=== PATIENT | male | born 1945 | race Hispanic/Latino ===

== ENCOUNTER → 2018-11-13 | Outpatient (CLI) | payer OTHER | END | disposition home or self-care (01) | LOC: OIH 11-12 13:49 | PROVIDERS: ATTEND Internal Medicine Cardiovascular Disease | DX: I65.23 Occlusion and stenosis of bilateral carotid arteries (principal); I10 Essential (primary) hypertension; I25.10 Atherosclerotic heart disease of native coronary artery without angina pectoris | CPT/HCPCS: 93880 ==

== ENCOUNTER → 2020-01-20 | Outpatient (CLI) | payer OTHER | END | disposition home or self-care (01) | LOC: SHCH 08:04 | PROVIDERS: ATTEND Internal Medicine Cardiovascular Disease | DX: I65.23 Occlusion and stenosis of bilateral carotid arteries (principal); I25.10 Atherosclerotic heart disease of native coronary artery without angina pectoris; I51.7 Cardiomegaly ==

== ENCOUNTER → 2020-01-23 | Outpatient (CLI) | payer OTHER ==
[~2020-01-23] MED LIST: REGADENOSON 0.4 MG/5 ML PF SYG IVP SCH
== END | disposition home or self-care (01) ==
LOC: SHCH 07:56
PROVIDERS: ATTEND Internal Medicine Cardiovascular Disease
DX: I10 Essential (primary) hypertension (principal)
CPT/HCPCS: 78452; 93017; 96374; A9500 ×2; J2785

== ENCOUNTER 2022-10-07 16:30 | Emergency (ER) | payer OTHER ==
[~2022-10-07] VITALS: Ht 165.1 cm; Wt 83.9 kg
[2022-10-07 16:56] LABS: BASOPHILS % (AUTO) 0.2 % (0.0-5.0); EOSINOPHILS % (AUTO) 0.1 % (0.0-8.0); HEMATOCRIT 35.7 % (42-54); LYMPHOCYTES % (AUTO) 3.2 % (21.0-51.0); MEAN CORPUSCULAR HEMOGLOBIN 30.1 pg (27.0-33.0); MEAN CORPUSCULAR HGB CONC 35.3 g/dL (32.0-36.0); MEAN CORPUSCULAR VOLUME 85.4 fL (79-99); MONOCYTES % (AUTO) 3.2 % (3.0-13.0); NEUTROPHILS % (AUTO) 91.7 % (40.0-77.0); PLATELET COUNT (AUTO) 200 K/uL (130-400); RED BLOOD CELL COUNT(AUTO) 4.18 MIL/uL (4.50-6.20); RED CELL DISTRIBUTION WIDTH 14.2 % (11.0-15.5); WHITE BLOOD COUNT (AUTO) 9.8 K/uL (4.8-10.8)
[2022-10-07 17:06] LABS: CREATININE 2.1 mg/dL (0.5-1.5); POTASSIUM 4.8 mmol/L (3.5-5.1)
[2022-10-07 17:14] LABS: ALBUMIN 3.5 g/dL (3.5-5.0); TOTAL PROTEIN, SERUM 6.6 g/dL (6.0-8.3)
[2022-10-07 17:24] LABS: APPEARANCE,URINE CLEAR (CLEAR); BILIRUBIN,URINE NEGATIVE (NEGATIVE); COLOR,URINE LIGHT-YELLOW (YELLOW); GLUCOSE, URINE (UA) 300 mg/dL (NEGATIVE); KETONES,URINE NEGATIVE (NEGATIVE); LEUKOCYTE ESTERASE ,URINE NEGATIVE Leu/uL (NEGATIVE); NITRATE,URINE NEGATIVE (NEGATIVE); OCCULT BLOOD,URINE NEGATIVE (NEGATIVE); PH,URINE 6.5 (5.0-8.0); PROTEIN,URINE NEGATIVE (NEGATIVE); UROBILINOGEN,URINE 0.2 mg/dL (0.2-1.0)
[2022-10-07 17:31] LABS: BACTERIA,URINE RARE /HPF (None Seen); RBC,URINE 0-1 /HPF (0-1); SQUAMOUS EPITHELIAL CELL,UR RARE /HPF (0-2); WBC,URINE 0-1 /HPF (0-1)
[2022-10-07 18:07] VITALS: BP 149/74
== END 2022-10-07 18:23 | disposition home or self-care (01) ==
LOC: EDH 16:30
DX: E11.649 Type 2 diabetes mellitus with hypoglycemia without coma (principal); E78.00 Pure hypercholesterolemia, unspecified; I10 Essential (primary) hypertension; I25.10 Atherosclerotic heart disease of native coronary artery without angina pectoris; Z88.5 Allergy status to narcotic agent; Z79.899 Other long term (current) drug therapy; Z95.1 Presence of aortocoronary bypass graft
CPT/HCPCS: 36415; 71045; 80053; 81001; 82948; 84484; 85025; 93005

== ENCOUNTER 2023-03-25 09:39 | Emergency (ER) | payer OTHER ==
[~2023-03-25] VITALS: Ht 165.1 cm; Wt 83.5 kg
[~2023-03-25 09:39] MED LIST changes: +AEC81 PO; +ALLO100T PO; +ALOG6.252 PO; +AMLO-258 PO; +ATOR40TA69 PO; +CETI10TA57 PO; +CHOL100046 PO; +CLON0.1T PO; +FINA5TAB41 PO; +FLUT16H NASAL; +FOLI0.8T41 PO; +FURO40TA5 PO; +INSREG SQ; +LISI40TA9 PO; +METO100T14 PO; +RANO500T2 PO; -REGADENOSON 0.4 MG/5 ML PF SYG IVP SCH; +SODI650T PO; +TAMS-1 PO
[2023-03-25] MEDS ORDERED: TETANUS/DIPHTHERIA TOXOID [ADULT] 0.5 ML VIAL IM ONE (12:00)
[2023-03-25] MEDS ORDERED: BACITRACIN 1 EACH PACKET TP ONE (12:00)
[2023-03-25] MEDS ORDERED: AMOX1TAB16 PO (12:02)
[2023-03-25 13:10] LABS: APPEARANCE,URINE CLEAR (CLEAR); BILIRUBIN,URINE NEGATIVE (NEGATIVE); COLOR,URINE LIGHT-YELLOW (YELLOW); GLUCOSE, URINE (UA) NEGATIVE (NEGATIVE); KETONES,URINE NEGATIVE (NEGATIVE); LEUKOCYTE ESTERASE ,URINE 500 Leu/uL (NEGATIVE); NITRATE,URINE NEGATIVE (NEGATIVE); OCCULT BLOOD,URINE NEGATIVE (NEGATIVE); PH,URINE 5.5 (5.0-8.0); PROTEIN,URINE NEGATIVE (NEGATIVE); UROBILINOGEN,URINE 0.2 mg/dL (0.2-1.0)
[2023-03-25 13:27] LABS: ADD UA MICROSCOPIC YES
[2023-03-25 13:29] LABS: BACTERIA,URINE RARE /HPF (None Seen); RBC,URINE 0-1 /HPF (0-1)
[2023-03-25 13:31] VITALS: BP 126/74; PULSE 70; RESP 18; O2SAT 98
[2023-03-25] MEDS ORDERED: SULF1TAB42 PO (14:10)
== END 2023-03-25 14:23 | disposition home or self-care (01) ==
LOC: EDH 09:39
DX: T83.091A Other mechanical complication of indwelling urethral catheter, initial encounter (principal); S60.512A Abrasion of left hand, initial encounter; N39.0 Urinary tract infection, site not specified; I11.0 Hypertensive heart disease with heart failure; I50.9 Heart failure, unspecified; E11.9 Type 2 diabetes mellitus without complications; E78.00 Pure hypercholesterolemia, unspecified; Z79.4 Long term (current) use of insulin; Z79.82 Long term (current) use of aspirin; Z88.5 Allergy status to narcotic agent; Z90.49 Acquired absence of other specified parts of digestive tract; Z95.1 Presence of aortocoronary bypass graft; Y82.9 Unspecified medical devices associated with adverse incidents; Y92.89 Other specified places as the place of occurrence of the external cause; X58.XXXA Exposure to other specified factors, initial encounter; Y93.89 Activity, other specified; Y99.8 Other external cause status
CPT/HCPCS: 81001; 87077; 87088; 87186; 90471; 90714

== ENCOUNTER 2023-06-23 18:21 | Emergency (ER) | payer OTHER ==
[~2023-06-23] VITALS: Ht 170.2 cm; Wt 81.2 kg
[~2023-06-23 18:21] MED LIST changes: +AMOX1TAB16 PO; +SULF1TAB42 PO
[2023-06-23 18:24] VITALS: BP 149/74; PULSE 68; RESP 18
[2023-06-23 18:50] LABS: BASOPHILS # (AUTO) 0.06 K/uL (0.00-0.20); BASOPHILS % (AUTO) 0.6 % (0.0-5.0); EOSINOPHILS # (AUTO) 0.11 K/uL (0.00-0.70); EOSINOPHILS % (AUTO) 1.1 % (0.0-8.0); HEMATOCRIT 36.8 % (42-54); IMMATURE GRANULOCYTE ABSOLUTE 0.12 K/uL (0-1); LYMPHOCYTES # (AUTO) 1.9 K/uL (1.0-4.8); LYMPHOCYTES % (AUTO) 17.9 % (21.0-51.0); MEAN CORPUSCULAR HEMOGLOBIN 30.1 pg (27.0-33.0); MEAN CORPUSCULAR HGB CONC 33.4 g/dL (32.0-36.0); MONOCYTES % (AUTO) 9.3 % (3.0-13.0); NEUTROPHILS # (AUTO) 7.2 K/uL (1.8-7.7); NEUTROPHILS % (AUTO) 69.9 % (40.0-77.0); PLATELET COUNT (AUTO) 354 K/uL (130-400); RED BLOOD CELL COUNT(AUTO) 4.09 MIL/uL (4.50-6.20); RED CELL DISTRIBUTION WIDTH 14.6 % (11.0-15.5); WHITE BLOOD COUNT (AUTO) 10.3 K/uL (4.8-10.8)
[2023-06-23 19:06] LABS: CREATININE 1.9 mg/dL (0.5-1.5); POTASSIUM 3.9 mmol/L (3.5-5.1)
[2023-06-23 19:09] LABS: INR < 0.93 (0.85-1.15); PROTHROMBIN TIME 10.6 SEC (9.6-11.6)
[2023-06-23 19:11] LABS: ALBUMIN 3.7 g/dL (3.5-5.0); BILIRUBIN,TOTAL 0.4 mg/dL (0.2-1.0); TOTAL PROTEIN, SERUM 7.2 g/dL (6.0-8.3)
[2023-06-23] MEDS ORDERED: 0.9%NACL 1000ML 1,000 ML IV ONE (20:00)
[2023-06-23] MEDS ORDERED: DIPH1TAB PO (20:56)
== END 2023-06-23 21:37 | disposition home or self-care (01) ==
LOC: EDH 18:21
DX: I13.0 Hypertensive heart and chronic kidney disease with heart failure and stage 1 through stage 4 chronic kidney disease, or unspecified chronic kidney disease (principal); E11.22 Type 2 diabetes mellitus with diabetic chronic kidney disease; N18.30 Chronic kidney disease, stage 3 unspecified; R19.7 Diarrhea, unspecified; I50.9 Heart failure, unspecified; Z79.4 Long term (current) use of insulin; Z79.82 Long term (current) use of aspirin; Z88.5 Allergy status to narcotic agent; Z90.49 Acquired absence of other specified parts of digestive tract; Z95.1 Presence of aortocoronary bypass graft
CPT/HCPCS: 99284; 74176; 96360; 82270; 80053; 85025; 85610; 85730; 36415; J7030

== ENCOUNTER 2024-09-12 06:40 | Day surgery (SDC) | payer OTHER ==
[2024-09-10 14:14] VITALS: BP 117/57; PULSE 61; RESP 18; TEMP 97.3
[2024-09-10 14:52] LABS: BASOPHILS # (AUTO) 0.07 K/uL (0.00-0.20); BASOPHILS % (AUTO) 0.7 % (0.0-5.0); EOSINOPHILS # (AUTO) 0.33 K/uL (0.00-0.70); EOSINOPHILS % (AUTO) 3.3 % (0.0-8.0); HEMATOCRIT 35.9 % (42-54); IMMATURE GRANULOCYTE ABSOLUTE 0.07 K/uL (0-1); LYMPHOCYTES # (AUTO) 2.1 K/uL (1.0-4.8); LYMPHOCYTES % (AUTO) 21.5 % (21.0-51.0); MEAN CORPUSCULAR HEMOGLOBIN 29.6 pg (27.0-33.0); MEAN CORPUSCULAR HGB CONC 32.9 g/dL (32.0-36.0); MONOCYTES # (AUTO) 0.9 K/uL (0.1-1.0); MONOCYTES % (AUTO) 8.9 % (3.0-13.0); NEUTROPHILS # (AUTO) 6.4 K/uL (1.8-7.7); NEUTROPHILS % (AUTO) 64.9 % (40.0-77.0); PLATELET COUNT (AUTO) 312 K/uL (130-400); RED BLOOD CELL COUNT(AUTO) 3.99 MIL/uL (4.50-6.20); RED CELL DISTRIBUTION WIDTH 13.8 % (11.0-15.5); WHITE BLOOD COUNT (AUTO) 9.9 K/uL (4.8-10.8)
[2024-09-10 15:07] LABS: CREATININE 2.1 mg/dL (0.5-1.3); POTASSIUM 4.2 mmol/L (3.5-5.1)
[2024-09-10 15:08] LABS: INR <= 0.93 (0.85-1.15); PROTHROMBIN TIME 10.4 SEC (9.6-11.6)
[2024-09-10 15:09] LABS: PARTIAL THROMBOPLASTIN TIME 27.2 SEC (26.3-35.5)
[2024-09-10 15:13] LABS: B-TYPE NATRIURETIC PEPTIDE 838 pg/mL (0-100)
--- NOTE | 2024-09-10 15:24 | HMCIMG ---
Exam Type: CHEST 1VW Clinical Information: PREOP Comparison: None Findings: There is cardiomegaly and there is status post median sternotomy. The lungs are clear of infiltrates. Impression: Clear lungs.
--- NOTE | 2024-09-11 06:59 | EKG ---
[facility] Test Date: 2024-09-10 Test Time: 14:58:21 Pat Name: CURT LOPEZ Department: [facility] Room: [facility] Gender: M Superintendent Power: [id number] [phone] [id number] Requested By: Sedrick MONROE Order Number: [id number] Reading MD: Rufus Coronado Measurements Intervals [place] Rate: 57 P: 46 NM: 202 QRS: 24 QRSD: 131 T: 73 QT: 492 QTc: 480 Interpretive Statements Sinus rhythm Right bundle branch block Inferior infarct, old Compared to ECG 06/23/2023 19:53:04 Ventricular premature complex(es) no longer present Myocardial infarct finding still present Electronically Signed On 09-12-2024 17:35:51 IT RISK AND ASSURANCE MANAGER by Rufus Coronado Please click the below link to view image of tracing.
--- NOTE | 2024-09-11 15:46 | NUR ---
RE: LABS REPORTED BMP RESULTS TO MADISON BROWN NP. RECEIVED ORDERS TO HAVE PATIENT HYDRATE TONIGHT, REPEAT LABS IN AM, NS AT 150ML/HR X 4 HOURS PRIOR TO PROCEDURE THEN 2 HOURS AFTERWARD.
[~2024-09-12] VITALS: Ht 165.1 cm; Wt 63.6 kg
[~2024-09-12 06:40] MED LIST changes: -ALLO100T PO; -ALOG6.252 PO; -AMLO-258 PO; +AMLO2.5T4 PO; -AMOX1TAB16 PO; +CARB15DR2 OP; +CHOL-34 PO; -CHOL100046 PO; -FINA5TAB41 PO; -FOLI0.8T41 PO; +FOLI1TAB85 PO; -INSREG SQ; +INSU300I3 SQ; -LISI40TA9 PO; -METO100T14 PO; +METO50TA18 PO; -SULF1TAB42 PO; -TAMS-1 PO
[2024-09-12] MEDS ORDERED: 0.9%NACL 1000ML 1,000 ML IV SCH (07:00)
[2024-09-12 07:31] LABS: CREATININE 1.9 mg/dL (0.5-1.3)
--- NOTE | 2024-09-12 08:48 | PN ---
The patient is a pleasant gentleman who is well known to me with multiple medical problems as outlined by his prior evaluation and history and physical. The patient has been evaluated recently because of progressive deterioration in his left ventricular functional status and because of symptoms of dyspnea on exertion. He had been scheduled to undergo cardiac catheterization and coronary arteriography. In reviewing the patient's laboratory studies this morning, his creatinine is up to 2.1. This had been measured at 1.7 in June. Today, I have had a detailed discussion with the patient and his in regards to the findings on the laboratory studies. I have reviewed the alternative modes of management with him including the option of continued medical management versus the option of proceeding with cardiac catheterization and coronary arteriography for definitive diagnostic information. The specific risk of worsening renal dysfunction was discussed with them. At this point, they have opted for continued medical management and not to proceed with cardiac catheterization, which certainly seems reasonable. The patient's medications will be optimized. An echocardiogram will be repeated in few months to assess if there is any improvement in his left ventricular functional status. If he continues to have an EF of less than 35%, consideration will be given for a ROCHELLE for primary prevention. TID: [id number] RECEIPT: [id number]
== END 2024-09-12 07:43 | disposition home or self-care (01) ==
LOC: DAH 06:40
PROVIDERS: ATTEND Internal Medicine Cardiovascular Disease
DX: I25.10 Atherosclerotic heart disease of native coronary artery without angina pectoris (principal); I45.10 Unspecified right bundle-branch block; I25.2 Old myocardial infarction; Z88.5 Allergy status to narcotic agent; Z91.040 Latex allergy status; Z79.01 Long term (current) use of anticoagulants; Z53.8 Procedure and treatment not carried out for other reasons
CPT/HCPCS: 36415; 71045; 80048; 82948; 83880; 85025; 85610; 85730; 93005; J7030

== ENCOUNTER → 2024-10-13 | Outpatient (CLI) | payer OTHER ==
--- NOTE | 2024-10-14 07:45 | HMCSR ---
APPROVED REPORT EXAM: Two-dimensional and M-mode echocardiogram with Doppler and color Doppler. INDICATION ICD: I25 2D Dimensions RVDd3.9 cmLA (2D)4.3 (1.6-4.0cm)LVED Vol(simp.)137.2 mL IVSd1.0 (0.7-1.1cm)Ao Root(2D)3.4 (2.0-3.7cm)LVES Vol(simp.)64.5 mL LVDd5.7 (3.8-5.6cm)LVOT diam2.2 (1.8-2.4cm)LVEF(%, simp.)53 % PWd0.9 (0.7-1.1cm) LVDs3.6 (2.5-4.0cm) M-Mode Dimensions EPSS1.0 cm LA (MM)4.4 (1.6-4.0cm) Ao Root(MM)3.7 (2.0-3.7cm) Aortic Valve AoV Vmax2.4 m/Terra Peak GR23.3 mmHgLVOT Vmax1.4 m/s AoV VTI0.6 mAo Mean GR12.9 mmHgLVOT VTI0.33 m REBEKAH (VMAX)2.1 cm2Al P1/2T554 msAVA (VTI) 2.1 cm2 Mitral Valve MV E Vmax82.3 cm/sDECEL Bfio564 ms MV A Mfrx155.5 cm/sP 1/2 T66 ms E/A ratio0.7MVA (PHT)3.4 cm2 TDI E/E' Wiatyw56.6E/E' Lateral9.1 Medial E' Peak V4.00 cm/sLateral E' Peak V9.00 cm/s Left Ventricle The left ventricle is borderline dilated. There is normal left ventricular wall thickness. LVEF is 50 -55%. No left ventricle thrombus noted on this study. Stage I diastolic dysfunction. Right Ventricle The right ventricle is normal size. The right ventricular systolic function is normal. Atria The left atrium size is normal. The right atrium size is normal. Aortic Valve Aortic valve is trileaflet and heavily thickened, with decreased opening. Trace of aortic regurgitati on is present. There is mild aortic valvular stenosis may be underestimated due to low flow gradient. pk gradient 23mmHg. mean gradient 13mmHg. The degree of reduced leaflet excursions is consistent wit h a more significant degree of aortic stenosis than the gradient measurements suggest. Mitral Valve The mitral valve is mildly thickened. There is mild mitral valve regurgitation noted. There is no ivory ral valve stenosis. Tricuspid Valve The tricuspid valve is normal in structure. There is no tricuspid valve regurgitation noted. Pulmonic Valve The pulmonary valve is normal in structure. There is no pulmonic valvular regurgitation. Great Vessels The aortic root is normal in size. The IVC is normal in size and collapses >50% with inspiration. Pericardium There is no pericardial effusion. Other Information Quality : Adequate Conclusion The left ventricle is borderline dilated. LVEF is 50-55%. Stage I diastolic dysfunction. The right ventricle is normal size. The left atrium size is normal. Aortic valve is trileaflet and heavily thickened, with decreased opening. Trace of aortic regurgitation is present. There is mild aortic valvular stenosis may be underestimated due to low flow gradient. pk gradient 23 mmHg. mean gradient 13mmHg. The degree of reduced leaflet excursions is consistent with a more significant degree of aortic steno sis than the gradient measurements suggest. The mitral valve is mildly thickened. There is mild mitral valve regurgitation noted. There is no mitral valve stenosis. The aortic root is normal in size. The IVC is normal in size and collapses >50% with inspiration. There is no pericardial effusion.
== END | disposition home or self-care (01) ==
LOC: RAH 14:40
PROVIDERS: ATTEND Internal Medicine Cardiovascular Disease
DX: I08.0 Rheumatic disorders of both mitral and aortic valves (principal); I25.10 Atherosclerotic heart disease of native coronary artery without angina pectoris
CPT/HCPCS: 93306

== ENCOUNTER 2024-10-20 10:07 | Emergency (ER) | payer MEDICARE, OTHER ==
[~2024-10-20] VITALS: Ht 165.1 cm; Wt 63.0 kg
--- NOTE | 2024-10-20 10:25 | ERN ---
ED Note History of Present Illness Stated Complaint: TIGHTNESS IN CHEST,JITTERING Chief Complaint: Hypertension Time Seen by MD: 10:19 Dictation: Patient is a 79-year-old male here with his with complaints of having elevated blood pressure, despite having taken clonidine 0.1 At 09:03 this morning. also states he has been jittery. No fever no chills no nausea vomiting no complaints of chest pain. Patient does have a history of CAD, six stents and a chronic Temple catheter in place. He had an appointment today with his rn field case manager's today, , and Mr. To come to the emergency room. Allergies: Coded Allergies: codeine (Unverified Allergy, Unknown, 01/22/20) latex (Unverified Allergy, Unknown, 01/22/20) Home Meds Reported Medications Insulin Glargine,Hum.rec.anlog (Toujeo Max Solostar) 300 Unit/Ml (3 Ml) Insuln.pen, 22 UNIT SQ DAILY, SYRINGE /12/28 Carboxymethylcellulos/Glycerin (Refresh Optive Eye Drops) 0.5 %-0.9 % Drops, 15 ML OP AD for 4 TIMES PER DAY , DROP /12/28 Fluticasone Propionate (Flonase Nasal [place]) 50 Mcg/Actuation [place], 50 MCG NASAL AD, SPRAY /12/28 Cholecalciferol (Vitamin D3) (Vitamin D3) 25 Mcg (1000 Unit) Tablet, 25 MCG PO PM, TAB 2 Vit B Cmplx 3/FA/Vit C/Biotin (Gavi-Holly Rx Tablet) 1 Mg-60 Mg-300 Mcg Tablet, 1 EACH PO AM, TAB /12/28 Metoprolol Tartrate (Metoprolol Tartrate) 50 Mg Tablet, 50 MG PO BID, TAB 25 Amlodipine Besylate (Amlodipine Besylate) 2.5 Mg Tablet, 2.5 MG PO BID, TAB 25 Sodium Bicarbonate (Sodium Bicarbonate) 650 Mg Tablet, 650 MG PO BIDAC, TAB 11/27/22 Clonidine HCl (Clonidine HCl) 0.1 Mg Tablet, 0.1 MG PO Q6HPRN PRN for IF SBP GREATER THAN 160, TAB 11/27/22 Aspirin (ASPIRIN 81 MG ECTAB) 81 Mg Ectab, 81 MG PO DAILY, TAB.EC 11/27/22 Furosemide (Furosemide) 40 Mg Tablet, 40 MG PO AM, TAB 11/27/22 Ranolazine (RANEXA) 500 Mg Tab.er.12h, 500 MG PO BIDAC, TAB 11/27/22 Atorvastatin Calcium (LIPITOR) 80 Mg Tablet, 80 MG PO HS, TAB 11/27/22 Cetirizine HCl (Cetirizine HCl) 10 Mg Tablet, 10 MG PO DAILY, TAB 11/27/22 Past Medical History Past Medical History: CHF, Diabetes-Type II, High Cholesterol, Hypertension, Renal Disese, Stroke, Other Additional Past Medical Hx: PROSTATE, TEMPLE CATHETER IN PLACED Surgical History: Appendectomy, CABG Surgical History Other: BLADDER, EYE SURGERY Family History: HTN Social History: Negative, Lives with family RN Note Reviewed/Agreed w/PFSH: Yes Review of System Dictation CONSTITUTIONAL: Negative except for HPI HEAD/FACE: Negative except for HPI EENT: Negative except for HPI RESPIRATORY: Negative except for HPI GASTROINTESTINAL/ABDOMINAL: Negative except for HPI GENITOURINARY: Negative except for HPI MUSCULOSKELETAL: Negative except for HPI INTEGUMENTARY: Negative except for HPI NEUROLOGICAL/PSYCH: Negative except for HPI HEMATOLOGIC/LYMPHATIC: Negative except for HPI All Systems Negative, Except as noted above. 13 point review of systems assessed and all negative except for above. Initial Vital Sign VS Vital Signs Date Time Temp Pulse Resp B/P (MAP) Pulse Ox O2 Delivery O2 Flow Rate FiO2 10/20/24 10:14 97.9 64 16 173/93 100 Room Air 0 10/20/24 11:18 21 Physical Exam Dictation Vital Signs reviewed General Appearance: Alert, oriented x 3, no acute distress, well developed, nourished. Head and Face: non-traumatic. Eyes: PERRL, pink conjunctivas, eyelid no trauma, anterior chamber with arcus s enilis. Ears: Pinnas intact and no signs of trauma or erythema ear canals clear and no discharge TM no erythema Nose: No discharge, no bleeding. Oropharynx: Mouth normal, tongue pink, pharynx clear,no erythema, tonsils no exudates, no abscesses noted, mucous membrane moist Neck: Supple, non-tender, no thyromegaly, no masses, no JVD, no bruits Breast:Deferred Chest:No tenderness, no crepitus, no paradoxical movement, no retractions Lungs:Clear, well-ventilated, symmetric, no rales, no wheezing, no rhonchi, no stridor, good breath sounds bilaterally Heart: Regular rate, regular rhythm, no murmur, no gallops Vascular: no peripheral edema, Abdomen: Soft, positive bowel sounds, nondistended, no guarding, nontender, no rebound, no masses no hepatomegaly, no splenomegaly, no Jameson's sign, no hernias. Rectal: Deferred Genital: Deferred Temple catheter in place to leg bag Neurological: Normal speech, motor function intact, sensory function intact Musculoskeletal: Neck nontender, full range of motion, back nontender, full range of motion, Extremities: nontender, full range of motion Skin: Color pink, dry, no turgor, no rash, no lacerations, no abrasions, no contusions. Lymphatic: Deferred Results (Laboratory/Radiology) Laboratory/Radiology Laboratory Tests Test 10/20/24 10:34 10/20/24 12:23 White Blood Count 8.6 K/uL (4.8-10.8) Red Blood Count 4.49 MIL/uL (4.50-6.20) L Hemoglobin 13.4 g/dL (14.0-18.0) L Hematocrit 39.8 % (42-54) L Mean Corpuscular Volume 88.6 fL (79-99) Mean Corpuscular Hemoglobin 29.8 pg (27.0-33.0) Mean Corpuscular Hemoglobin Concent 33.7 g/dL (32.0-36.0) Red Cell Distribution Width 13.8 % (11.0-15.5) Platelet Count 313 K/uL (130-400) Mean Platelet Volume 9.6 fL (7.5-10.5) Immature Granulocyte % (Auto) 0.7 % (0-1) Neutrophils (%) (Auto) 63.1 % (40.0-77.0) Lymphocytes (%) (Auto) 23.0 % (21.0-51.0) Monocytes (%) (Auto) 8.3 % (3.0-13.0) Eosinophils (%) (Auto) 4.3 % (0.0-8.0) Basophils (%) (Auto) 0.6 % (0.0-5.0) Neutrophils # (Auto) 5.5 K/uL (1.8-7.7) Lymphocytes # (Auto) 2.0 K/uL (1.0-4.8) Monocytes # (Auto) 0.7 K/uL (0.1-1.0) Eosinophils # (Auto) 0.37 K/uL (0.00-0.70) Basophils # (Auto) 0.05 K/uL (0.00-0.20) Absolute Immature Granulocyte (auto 0.06 K/uL (0-1) Nucleated Red Blood Cells 0.0 % (0.0-0.19) Sodium Level 133 mmol/L (136-145) L Potassium Level 3.8 mmol/L (3.5-5.1) Chloride Level 97 mmol/L (101-111) L Carbon Dioxide Level 30 mmol/L (21-32) Blood Urea Nitrogen 34 mg/dL (7-18) H Creatinine 1.9 mg/dL (0.5-1.3) H Glomerular Filtration Rate Calc 35 mL/min (>90) Random Glucose 191 mg/dL (70-105) H Total Calcium 9.2 mg/dL (8.5-10.1) Magnesium Level 1.80 mg/dL (1.80-2.40) Troponin I High Sensitivity 25 ng/L (4-75) B-Type Natriuretic Peptide 752 pg/mL (0-100) H Urine Color LIGHT-YELLOW (YELLOW) Urine Appearance CLEAR (CLEAR) Urine pH 6.5 (5.0-8.0) Urine Specific [place] 1.005 (1.001-1.031) Urine Protein NEGATIVE mg/dL (NEGATIVE) Urine Glucose (UA) 70 mg/dL (NEGATIVE) H Urine Ketones NEGATIVE mg/dL (NEGATIVE) Urine Occult Blood NEGATIVE (NEGATIVE) Urine Nitrate NEGATIVE (NEGATIVE) Urine Bilirubin NEGATIVE mg/dL (NEGATIVE) Urine Urobilinogen 0.2 mg/dL (0.2-1.0) Urine Leukocyte Esterase 500 Noah/uL (NEGATIVE) H Urine RBC 0-1 /HPF (0-1) Urine WBC 26-50 /HPF (0-1) H Urine Bacteria RARE /HPF (None Seen) Exam Type: CHEST 1VW Clinical Information: Chest pain Comparison: None Findings: There is cardiomegaly and there is status post median sternotomy. The lungs are clear of infiltrates. Impression: Clear lungs. Labs Reviewed?: Yes EKG Comment: Sinus bradycardia/heart rate 58/right bundle branch block/axis normal ED Course ED Course Orders Procedure Category Date Status Time Cbc With Differential LAB 10/20/24 Complete 10:20 B-Type Natriuretic LAB 10/20/24 Complete Peptide 10:20 Chest 1vw RAD 10/20/24 Resulted 10:20 12 Lead Ekg Tracing- EKG 10/20/24 Complete Technical 10:20 Magnesium LAB 10/20/24 Complete 10:20 Troponin I High LAB 10/20/24 Complete Sensitivity 10:20 Urinalysis Profile LAB 10/20/24 Complete 10:20 Basic Metabolic Panel LAB 10/20/24 Complete 10:20 Furosemide 40mg Vial PHA 10/20/24 Complete (Lasix 40mg Vial) 13:00 Culture Urine NUBIA 10/20/24 In Process 12:55 Levofloxacin 500mg PHA 10/20/24 In Process Tab (Levaquin 500mg T 13:30 Current Medications Medications (Trade) Dose Ordered Sig/Ganesh Route PRN Reason Start Time Stop Time Status Last Admin Dose Admin Furosemide (LASix 40MG VIAL) 40 mg ONCE ONCE IV 10/20/24 13:00 10/20/24 13:01 DC 10/20/24 13:05 Levofloxacin (LEvaquIN 500MG TAB) 500 mg ONCE PO 10/20/24 13:30 10/30/24 13:29 Vital Signs Date Time Temp Pulse Resp B/P (MAP) Pulse Ox O2 Delivery O2 Flow Rate FiO2 10/20/24 12:28 97.9 65 16 156/65 100 Room Air* 0 21 10/20/24 11:18 97.9 60 16 135/62 100 Room Air* 0 21 10/20/24 10:14 97.9 64 16 173/93 100 Room Air 0 1335/PATIENT WE WILL BE DISCHARGED HOME WITH HIS LAST BLOOD PRESSURE 156/65 WE WILL INCREASE METOPROLOL TO 100 MG A.M. AND LEAVE AT 50 MG P.M.. IN ADDITION WE WILL BE GIVEN LEVAQUIN FOR URINARY TRACT INFECTION AND TOLD TO FOLLOW UP WITH HIS DOCTOR. AND PATIENT ARE IN AGREEMENT THAT HE WOULD LIKE TO BE DISCHARGED HOME AND WE WILL FOLLOW UP OUTPATIENT Medical Decision Making MDM MDM: DIFFERENTIAL DIAGNOSIS: ACS/AMI/UNCONTROLLED BLOOD PRESSURE/ELECTROLYTE IMBALANCE/DEHYDRATION/BNP/CHF RATIONALE: TESTS CONSIDERED AND ORDERED SECONDARY TO SHARED DECISION MAKING INCLUDE: LABS/RADIOLOGY/EKG PREVIOUS OUTSIDE RECORDS REVIEWED: OLD ER VISITS. RISK OF COMPLICATION AND/OR MORBIDITY OR MORTALITY OF PATIENT MANAGEMENT: NONE MEDICATIONS-PER MEDICATION RECONCILIATION NEED FOR HOSPITALIZATION: PATIENT DOES NOT MEET CRITERIA FOR HOSPITALIZATION. NO NEED FOR EMERGENCY MAJOR/MINOR SURGERY: NO THERE ARE NO SOCIAL CONCERNS WITH THIS PATIENT. PRESCRIPTION DRUG MANAGEMENT LEVAQUIN, PATIENT IS ALREADY ON LASIX 40 DAILY HAD NOT TAKEN IT THIS MORNING. PRESCRIPTIONS WILL INCLUDE SYMPTOMATIC CARE PATIENT'S PRIOR EXTERNAL MEDICAL RECORDS FROM OTHER ER VISITS WERE REVIEWED BY ME INDICATED. PRIOR TESTING AND RESULTS FROM PREVIOUS VISITS WERE REVIEWED. PRIOR TESTS WERE TAKEN INTO ACCOUNT WITH MEDICAL DECISION MAKING AND RESOURCE UT ILIZATION, INDEPENDENT HISTORIAN/HISTORIANS WERE USED TO OBTAIN COMPLETE MEDICAL HISTORY. I INDEPENDENTLY INTERPRETED THE TEST THAT WERE PERFORMED, RESULTS WERE REVIEWED BY ME AND CONSIDERED FINDINGS ON RADIOLOGY IF ORDERED. MEDICAL MANAGEMENT AND EXAMINATION INTERPRETATION DISCUSSIONS WERE HAD BY ME WITH OTHER QUALIFIED HEALTHCARE PROFESSIONALS INDICATED FOR THE PATIENT'S CAR E. DX & DISP Disposition: Discharge Departure Impression: Primary Impression: Elevated blood pressure reading Additional Impressions: Elevated brain natriuretic peptide (BNP) level, Acute cystitis, Temple catheter in place Condition: Stable Scripts Levofloxacin (Levofloxacin) 500 Mg Tablet 1 TAB PO DAILY for 7 Days, #7 TAB 0 Refills Prov: JUAN CHAVEZ AERIAL TRAM OPERATOR 10/20/24 Additional Instructions: FOLLOW-UP WITH PRIMARY CARE PROVIDER IN 1 TO 2 DAYS. TAKE MEDICATIONS DIRECTED HERE IN THE EMERGENCY ROOM. OKAY TO CONTINUE HOME MEDICATIONS UNLESS OTHERWISE DISCUSSED DURING YOUR VISIT IN THE EMERGENCY ROOM TODAY. RETURN TO YOUR NEAREST EMERGENCY ROOM IF SYMPTOMS WORSEN OR IF THERE IS NO IMPROVEMENT. CALL 911 IF YOU NEED IMMEDIATE ASSISTANCE. TAKE TYLENOL OR MOTRIN [id number] NEEDED AND IF NO CONTRAINDICATIONS ARE PRESENT. INCREASE ORAL HYDRATION. A WOUND CULTURE OR URINE CULTURE WAS ORDERED HERE IN THE EMERGENCY ROOM DEPARTMENT PLEASE FOLLOW-UP WITH PRIMARY CARE PROVIDER AND ADVISE THEM TO GET REPEAT PORTS FROM OUR FACILITY. IF YOU HAD ANY RAYSA WRAP/SPLINTS THAT WERE APPLIED HERE, PLEASE DO NOT REMOVE THEM UNTIL YOU SEE YOUR PRIMARY CARE OR SPECIALTY. INCREASE METOPROLOL TO 100 MG IN THE MORNING, 50 MG IN THE AFTERNOON. TAKE LEVAQUIN DIRECTED UNTIL GONE. CONTINUE LASIX DIRECTED FROM YOUR DOCTOR AND FOLLOW UP WITH YOUR PRIMARY CARE Referrals: CELINA AGUILA (PCP) Time of Disposition: 13:41 I have reviewed the case, and I agree with, Diagnosis and Plan JUAN CHAVEZ NP Oct 20, 2024 10:24
--- NOTE | 2024-10-20 10:36 | EKG ---
[facility] Test Date: 2024-10-20 Test Time: 10:20:47 Pat Name: CURT LOPEZ Department: ED Room: Gender: M Health Care Marketing Specialist: [id number] : 1945 Requested By: JUAN CHAVEZ Order Number: [id number] Reading MD: Bay Abebe Measurements Intervals [place] Rate: 58 P: 52 CO: 194 QRS: 7 QRSD: 142 T: 51 QT: 482 QTc: 475 Interpretive Statements Sinus rhythm Left atrial enlargement Right bundle branch block Inferior infarct, old Compared to ECG 09/10/2024 14:58:21 Atrial abnormality now present Myocardial infarct finding still present Electronically Signed On 10-22-2024 14:11:38 CDT by Bay Abebe Please click the below link to view image of tracing.
[2024-10-20 10:41] LABS: BASOPHILS # (AUTO) 0.05 K/uL (0.00-0.20); BASOPHILS % (AUTO) 0.6 % (0.0-5.0); EOSINOPHILS # (AUTO) 0.37 K/uL (0.00-0.70); EOSINOPHILS % (AUTO) 4.3 % (0.0-8.0); HEMATOCRIT 39.8 % (42-54); IMMATURE GRANULOCYTE ABSOLUTE 0.06 K/uL (0-1); MEAN CORPUSCULAR HEMOGLOBIN 29.8 pg (27.0-33.0); MEAN CORPUSCULAR HGB CONC 33.7 g/dL (32.0-36.0); MEAN CORPUSCULAR VOLUME 88.6 fL (79-99); MONOCYTES # (AUTO) 0.7 K/uL (0.1-1.0); MONOCYTES % (AUTO) 8.3 % (3.0-13.0); NEUTROPHILS # (AUTO) 5.5 K/uL (1.8-7.7); NEUTROPHILS % (AUTO) 63.1 % (40.0-77.0); PLATELET COUNT (AUTO) 313 K/uL (130-400); RED BLOOD CELL COUNT(AUTO) 4.49 MIL/uL (4.50-6.20); RED CELL DISTRIBUTION WIDTH 13.8 % (11.0-15.5); WHITE BLOOD COUNT (AUTO) 8.6 K/uL (4.8-10.8)
[2024-10-20 10:48] LABS: CREATININE 1.9 mg/dL (0.5-1.3); MAGNESIUM 1.8 mg/dL (1.80-2.40); POTASSIUM 3.8 mmol/L (3.5-5.1)
[2024-10-20 11:12] LABS: B-TYPE NATRIURETIC PEPTIDE 752 pg/mL (0-100)
--- NOTE | 2024-10-20 12:14 | HMCIMG ---
Exam Type: CHEST 1VW Clinical Information: Chest pain Comparison: None Findings: There is cardiomegaly and there is status post median sternotomy. The lungs are clear of infiltrates. Impression: Clear lungs.
[2024-10-20 12:50] LABS: APPEARANCE,URINE CLEAR (CLEAR); BILIRUBIN,URINE NEGATIVE (NEGATIVE); COLOR,URINE LIGHT-YELLOW (YELLOW); GLUCOSE, URINE (UA) 70 mg/dL (NEGATIVE); KETONES,URINE NEGATIVE (NEGATIVE); LEUKOCYTE ESTERASE ,URINE 500 Leu/uL (NEGATIVE); NITRATE,URINE NEGATIVE (NEGATIVE); OCCULT BLOOD,URINE NEGATIVE (NEGATIVE); PH,URINE 6.5 (5.0-8.0); PROTEIN,URINE NEGATIVE (NEGATIVE); UROBILINOGEN,URINE 0.2 mg/dL (0.2-1.0)
[2024-10-20 12:55] LABS: ADD UA MICROSCOPIC YES
[2024-10-20] MEDS: furoSEMIDE 40MG VIAL IV ONE (13:05)
[2024-10-20 13:06] LABS: BACTERIA,URINE RARE /HPF (None Seen); RBC,URINE 0-1 /HPF (0-1); WBC,URINE 26-50 /HPF (0-1)
[2024-10-20] MEDS ORDERED: LEVO-70 PO (13:43)
[2024-10-20] MEDS: levoFLOXacin 500 MG TABLET PO SCH (13:49)
[2024-10-20 13:50] VITALS: BP 132/66; PULSE 66; RESP 16; TEMP 97.8; O2SAT 100
== END 2024-10-20 14:10 | disposition home or self-care (01) ==
LOC: EDH 10:07
DX: I11.0 Hypertensive heart disease with heart failure (principal); I50.9 Heart failure, unspecified; N30.00 Acute cystitis without hematuria; R79.89 Other specified abnormal findings of blood chemistry; E11.9 Type 2 diabetes mellitus without complications; E78.00 Pure hypercholesterolemia, unspecified; I25.10 Atherosclerotic heart disease of native coronary artery without angina pectoris; Z95.1 Presence of aortocoronary bypass graft; Z90.49 Acquired absence of other specified parts of digestive tract; Z88.5 Allergy status to narcotic agent; Z91.040 Latex allergy status; Z79.4 Long term (current) use of insulin; Z79.899 Other long term (current) drug therapy; Z79.82 Long term (current) use of aspirin; Z86.73 Personal history of transient ischemic attack (TIA), and cerebral infarction without residual deficits
CPT/HCPCS: 99285; 96374; 71045; 83735; 84484; 80048; 83880; 85025; 87086 ×3; 87186 ×2; 81001; 36415; 93005; J1940

== ENCOUNTER 2025-05-28 19:26 | Emergency (ER) | payer OTHER ==
[~2025-05-28] VITALS: Ht 165.1 cm; Wt 61.2 kg
[~2025-05-28 19:26] MED LIST changes: +ALLO100T PO; -AMLO2.5T4 PO; -CARB15DR2 OP; -CHOL-34 PO; +FURO20TA6 PO; -FURO40TA5 PO; +HYDR25TA67 PO; +METO25TA3 PO; -METO50TA18 PO; +PANT40TA PO; +TICA90TA PO
--- NOTE | 2025-05-28 19:51 | NUR ---
PT CARE ASSUMED AT THIS TIME
--- NOTE | 2025-05-28 19:55 | ERN ---
ED Note History of Present Illness Stated Complaint: C/O PAIN TO HEAD AND LOWER BACK PAIN AFTER FALL Chief Complaint: Mechanical Fall Time Seen by MD: 19:33 Dictation: 79-year-old male who was brought to the ER after a fall at home. As per patient has an was trying to sitting for stand, he felt he is a and fell backwards, hit his head. Patient is complaining of headache, lower lumbar/right side pelvis pain. Patient is a his said that patient is under hospitalist, she does not want any to be admitted last is very necessary. Allergies: Coded Allergies: codeine (Unverified Allergy, Unknown, RASH, 05/16/25) latex (Unverified Allergy, Unknown, 01/22/20) Home Meds Active Scripts Ticagrelor (Brilinta) 90 Mg Tablet, 90 MG PO BID, #60 TAB Prov:VAISHALIBAMCHRIS B CIGAR HEAD PUNCHER 05/19/25 Pantoprazole Sodium (Protonix) 40 Mg Tablet.dr, 40 MG PO DAILY, #60 TAB Prov:VAISHALICHRIS KUHN CIGAR HEAD PUNCHER 05/19/25 Metoprolol Succinate (Toprol Xl) 25 Mg Tab.er.24h, 25 MG PO BID, #60 TAB Prov:VAISHALICHRIS KUHN CIGAR HEAD PUNCHER 05/19/25 Furosemide (Lasix 20Mg Tab) 20 Mg Tablet, 20 MG PO DAILY, #60 TAB Prov:VAISHALIBAMCHRIS B CIGAR HEAD PUNCHER 05/19/25 Atorvastatin Calcium (LIPITOR) 40 Mg Tablet, 40 MG PO HS, #60 TAB Prov:VAISHALICHRIS KUHN CIGAR HEAD PUNCHER 05/19/25 Aspirin (ASPIRIN 81 MG ECTAB) 81 Mg Ectab, 81 MG PO DAILY, #60 TAB.EC Prov:VAISHALICHRIS KUHN CIGAR HEAD PUNCHER 05/19/25 Reported Medications Hydralazine HCl (Hydralazine HCl) 25 Mg Tablet, 25 MG PO BID, TAB 05/16/25 Allopurinol (Allopurinol) 100 Mg Tablet, 150 MG PO DAILY, TAB 05/16/25 Insulin Glargine,Hum.rec.anlog (Toujeo Max Solostar) 300 Unit/Ml (3 Ml) Insuln.pen, 22 UNIT SQ DAILY, SYRINGE 09/10/24 Fluticasone Propionate (Flonase Nasal [place]) 50 Mcg/Actuation [place], 50 MCG NASAL AD, SPRAY 09/10/24 Vit B Cmplx 3/FA/Vit C/Biotin (Gavi-Holly Rx Tablet) 1 Mg-60 Mg-300 Mcg Tablet, 1 EACH PO AM, TAB 09/10/24 Sodium Bicarbonate (Sodium Bicarbonate) 650 Mg Tablet, 650 MG PO BIDAC, TAB 11/27/22 Clonidine HCl (Clonidine HCl) 0.1 Mg Tablet, 0.1 MG PO Q6HPRN PRN for IF SBP GREATER THAN 160, TAB 11/27/22 Aspirin (ASPIRIN 81 MG ECTAB) 81 Mg Ectab, 81 MG PO DAILY, TAB.EC 11/27/22 Ranolazine (RANEXA) 500 Mg Tab.er.12h, 500 MG PO BIDAC, TAB 11/27/22 Atorvastatin Calcium (LIPITOR) 80 Mg Tablet, 80 MG PO HS, TAB 11/27/22 Cetirizine HCl (Cetirizine HCl) 10 Mg Tablet, 10 MG PO DAILY, TAB 11/27/22 Past Medical History Past Medical History: Diabetes-Type II, Hypertension, Renal Disese Additional Past Medical Hx: PROSTATE, TEMPLE CATHETER IN PLACED Surgical History: Other Surgical History Other: BLADDER, EYE SURGERY Family History: HTN Social History: Negative, Lives with family Review of System Dictation NEGATIVE EXCEPT PER HPI Constitutional: Negative for fever,chills, and weight loss Eyes: Negative for injury, pain,redness, and discharge ENT: Negative for injury,pain or swelling Cardiovascular: denies chest pain, palpitations, and edema Respiratory: Negative for shortness of breath, cough, and wheezing, Abdomen/GI: Negative for abdominal pain, nausea, vomiting, diarrhea, and constipation Back: Negative for injury and pain : Negative for injury, bleeding and discharge MS/Extremity: Lower lumbar spine Skin: Negative for rash, and discoloration Neuro: Reports headache Psych: Negative for suicide ideation, homicidal ideation, and hallucinations Initial Vital Sign VS Vital Signs Date Time Temp Pulse Resp B/P (MAP) Pulse Ox O2 Delivery O2 Flow Rate FiO2 05/28/25 19:29 98.4 81 20 177/95 99 Room Air 05/28/25 19:51 0 21 Physical Exam Dictation General: awake, alert, NAD Head/Face: There is a bump/hematoma in the occipital area. Eyes: PERRL, EOMI, vision at baseline ENT: oral cavity clear, TMs clear, no signs of infection Neck: Trachea midline, supple, no nuchal rigidity Cardiovascular: RRR, normal S1/S2, No MRGs, no JVD Respiratory: CTAB, no respiratory distress, No rales or wheezes Abdomen: Soft , no tender Skin: Warm, dry, normal turgor, no rash MS/Extremity: Pulses equal, no cyanosis, neurovascular intact, FROM Neuro: COAx4, GCS 15, strength 5/5, CN 2-12 intact, normal cerebellar exam, normal gait, Psych: Normal behavior, mood, and affect normal ED Course ED Course Orders Procedure Category Date Status Time Ct Head/Brain W/O CT 05/28/25 Resulted Contrast 19:39 Ct Cervical Spine W/O CT 05/28/25 Resulted Contrast 19:39 Pelvis Complete Min RAD 05/28/25 Resulted 3vws 19:39 Lumbar Spine 2-3vws RAD 05/28/25 Resulted 19:39 Acetaminophen 500mg PHA 05/28/25 Complete Tab (Tylenol 500mg T 20:00 Ibuprofen 600 Mg PHA 05/28/25 Complete Tablet (Motrin) 21:00 Aspirin 81mg Chew Tab PHA 05/29/25 Logged (Aspirin 81mg Chew 09:00 Current Medications Medications (Trade) Dose Ordered Sig/Ganesh Route PRN Reason Start Time Stop Time Status Last Admin Dose Admin Acetaminophen (TYLenol 500MG TAB) 500 mg ONCE ONCE PO 05/28/25 20:00 05/28/25 20:01 DC 05/28/25 20:53 Aspirin (Aspirin 81mg Chew Tab) 81 mg DAILY PO 05/29/25 09:00 06/28/25 08:59 UNV Ibuprofen (moTRIN) 600 mg ONCE ONCE PO 05/28/25 21:00 05/28/25 21:01 DC Vital Signs Date Time Temp Pulse Resp B/P (MAP) Pulse Ox O2 Delivery O2 Flow Rate FiO2 05/28/25 21:33 78 19 152/91 98 Room Air* 0 05/28/25 19:51 98.4 75 20 172/77 99 Room Air* 0 05/28/25 19:29 98.4 81 20 177/95 99 Room Air Medical Decision Making MDM Fall Hematoma of head Possible internal Head injury Possible lumbar spine fracture Ordered CT head spine Ordered x-ray of lumbar/pelvic area REASON: s/p fall ORDERING PHYSICIAN: CHUCKY ANDREWS MD PROCEDURE: HEAD WO - CT HEAD/BRAIN W/O CONTRAST ADDENDUM REPORT ADDENDUM: Results were shared by telephone at 22:42 pm on 05-28-25 and acknowledged by Chucky Espinoza. /[place] EXAM: CT Head Without IV contrast. CLINICAL HISTORY: s/p fall TECHNIQUE: Axial computed tomography images of the head/brain without intravenous contrast. COMPARISON: None provided. FINDINGS: BRAIN: Age-appropriate cerebral atrophy. Confluent periventricular chronic small vessel ischemic changes. There is an ill-defined hypodensity in the left temporal lobe with partial blurring of the guevara white matter differentiation. No evidence of acute hemorrhage. No mass lesion. No midline shift or extra-axial collections. VENTRICLES: No hydrocephalus. ORBITS: The orbits are unremarkable. SINUSES AND MASTOIDS: Right mastoiditis. The paranasal sinuses and the rest of the mastoid air cells are clear. BONES: No fracture. SOFT TISSUES: Extracalvarial soft tissue swelling with subgaleal hematoma in the right high parietal region, the maximum thickness measuring up to 1.2 cm. IMPRESSION: Ill-defined hypodensities in the left temporal lobe with partial loss of the guevara white matter differentiation, concerning for an acute infarct. Recommend MRI of the Brain with DWI. Age-appropriate cerebral atrophy and chronic small vessel ischemic changes. Extracalvarial soft tissue swelling with subgaleal hematoma in the right high parietal region, the maximum thickness measuring up to 1.2 cm. IMPRESSION: No acute cervical spine abnormality. Mild to moderate cervical spondylosis with disc osteophyte complex bulges as described. Recommend MRI of the cervical spine. Extensive atherosclerotic vascular disease of the right carotid bulb with more than 70-80% narrowing and more than 60-70% narrowing of the origin of the right internal carotid artery, and atherosclerotic calcification of the left carotid bulbs with approximately 30-40% narrowing. Patient results of CT scan discussed with the family member, taylor possible time stroke, recommendation for MRI , but patient and family member decided did not want to proceed with a admission for further studies, since patient is under hospitalist team preferred to follow up as outpatient with the his nurse practitioner from hospice. I will discharge the patient on aspirin 81 mg/atorvastatin. DX & DISP Disposition: Discharge Departure Impression: Primary Impression: Fall Additional Impressions: Stroke, Hospice care patient Condition: Stable Scripts Acetaminophen (Tylenol) 500 Mg Tab 1 TAB PO Q6HPRN PRN for pain or fever for 5 Days, #25 TAB 0 Refills Prov: CHUCKY ANDREWS MD 05/28/25 Aspirin (ASPIRIN 81MG CHEW TAB) 81 Mg Tab.chew 1 TAB PO DAILY for 30 Days, #30 TAB 0 Refills Prov: CHUCKY ANDREWS MD 05/28/25 Additional Instructions: RETURN TO ER FOR ANY ACUTE OR WORSENING SYMPTOMS. FOLLOW-UP IN 1-2 DAYS WITH PRIMARY PROVIDER FOR RECHECK OF TODAY'S SYMPTOMS. Referrals: CELINA AGUILA (PCP) Patient he will be discharged home, he does not want to proceed with the a dmission or MRI at moment. Stated that his under hospitalist. The prefers to follow up with the nurse practitioner from hospice as outpatient. We discussed the pros and cons to be discharged as well the risks and they decided to proceed with a discharged home. CHUCKY ANDREWS MD May 28, 2025 19:55
--- NOTE | 2025-05-28 21:32 | HMCIMG ---
EXAM: CT Head Without IV contrast. CLINICAL HISTORY: s/p fall TECHNIQUE: Axial computed tomography images of the head/brain without intravenous contrast. COMPARISON: None provided. FINDINGS: BRAIN: Age-appropriate cerebral atrophy. Confluent periventricular chronic small vessel ischemic changes. There is an ill-defined hypodensity in the left temporal lobe with partial blurring of the guevara white matter differentiation. No evidence of acute hemorrhage. No mass lesion. No midline shift or extra-axial collections. VENTRICLES: No hydrocephalus. ORBITS: The orbits are unremarkable. SINUSES AND MASTOIDS: Right mastoiditis. The paranasal sinuses and the rest of the mastoid air cells are clear. BONES: No fracture. SOFT TISSUES: Extracalvarial soft tissue swelling with subgaleal hematoma in the right high parietal region, the maximum thickness measuring up to 1.2 cm. IMPRESSION: Ill-defined hypodensities in the left temporal lobe with partial loss of the guevara white matter differentiation, concerning for an acute infarct. Recommend MRI of the Brain with DWI. Age-appropriate cerebral atrophy and chronic small vessel ischemic changes. Extracalvarial soft tissue swelling with subgaleal hematoma in the right high parietal region, the maximum thickness measuring up to 1.2 cm. /[place]
--- NOTE | 2025-05-28 21:42 | HMCIMG ---
EXAM: CT Cervical Spine Without IV contrast. CLINICAL HISTORY: Status post fall. TECHNIQUE: Axial computed tomography images of the cervical spine without intravenous contrast. Sagittal and coronal reformatted images were generated. COMPARISON: None provided. FINDINGS: ALIGNMENT: Bony alignment is anatomic. DEGENERATIVE CHANGES: Mild to moderate cervical spondylosis is evident by marginal osteophytes at multiple levels and mild uncovertebral hypertrophy. Mild multilevel facet joint arthropathy. The bones are mildly osteopenic. There is a straightening of the cervical spine that may reflect paraspinal muscle spasm. Mild atlanto-axial joint osteoarthritis. There are erosions in the right C7-T1 facet joint. Disc osteophyte complex bulges at the C3-C4, C4-C5, and C5-C6 levels, without significant spinal canal stenosis or neural foraminal narrowing. SOFT TISSUES: The prevertebral soft tissues are within normal limits. Extensive atherosclerotic vascular disease of the right carotid bulb with more than 70-80% narrowing and more than 60-70% narrowing of the origin of the right internal carotid artery, and atherosclerotic calcification of the left carotid bulbs with approximately 30-40% narrowing. BONES: No acute fracture or aggressive appearing osseous lesion. IMPRESSION: No acute cervical spine abnormality. Mild to moderate cervical spondylosis with disc osteophyte complex bulges as described. Recommend MRI of the cervical spine. Extensive atherosclerotic vascular disease of the right carotid bulb with more than 70-80% narrowing and more than 60-70% narrowing of the origin of the right internal carotid artery, and atherosclerotic calcification of the left carotid bulbs with approximately 30-40% narrowing. /[place]
--- NOTE | 2025-05-28 21:45 | HMCIMG ---
EXAM: CR Pelvis, 1 view. CLINICAL HISTORY: Pain. Fall. COMPARISON: None provided. FINDINGS: No acute fracture or aggressive appearing osseous lesion. Mild osteopenia. Mild osteoarthritis in the bilateral hip, sacroiliac, and symphysis pubis joints. Atherosclerotic vascular calcifications. IMPRESSION: No acute bony abnormality is evident. Mild osteopenia. Mild osteoarthritis. /[place]
--- NOTE | 2025-05-28 21:48 | HMCIMG ---
EXAM: CR Lumbar Spine, 3 views CLINICAL HISTORY: Pain. Fall. COMPARISON: None provided. FINDINGS: Grade 1 degenerative anterior listhesis of L5 on S1 with questionable chronic L5 spondylolysis. Mild osteopenia. Moderate spondylosis and mild degenerative disc space narrowing at multiple levels, most pronounced at L5-S1. Normal vertebral body heights. No acute fracture. Atherosclerotic vascular calcifications. IVC filter is in place. IMPRESSION: No acute bony abnormality is evident. Grade 1 degenerative anterior listhesis of L5 on S1 with questionable chronic L5 spondylolysis. Mild osteopenia. Moderate spondylosis and mild degenerative disc space narrowing at multiple levels, most pronounced at L5-S1. /[place]
--- NOTE | 2025-05-28 22:03 | NUR ---
ER PHYSICIAN DR ALATORRE AND MYSELF, SPOKE TO THE PATIENT AND SPOUSE IN REFERENCE TO CT SCAN RESULTS AND FURTHER CARE. PATIENT SPOUSE CONCERNED ABOUT LOSING HOSPICE. BOTH PATIENT AND SPOUSE PREFER TO GO HOME AND SEEK OUTPATIENT TREATMENT OPTIONS. PATIENT AND SPOUSE BOTH MADE AWARE OF POSSIBLE RISKS AND VERBALIZED UNDERSTANDING. BOTH MADE AWARE AND ENCOURAGED TO RETURN IF NEEDED.
[2025-05-28] MEDS ORDERED: ASPI-1005 PO (22:10)
[2025-05-28] MEDS ORDERED: ACET-66 PO (22:10)
[2025-05-28] MEDS: ASPIRIN 81MG CHEW TAB PO ONE (22:18)
[2025-05-28] MEDS ORDERED: LIDO1ADH82 TP (22:31)
[2025-05-28 23:24] VITALS: BP 152/84; PULSE 80; RESP 16; TEMP 98.4; O2SAT 98
[2025-05-29] MEDS ORDERED: ASPIRIN 81MG CHEW TAB PO SCH (09:00)
== END 2025-05-28 23:33 | disposition home or self-care (01) ==
LOC: EDH 19:26
DX: S00.03XA Contusion of scalp, initial encounter (principal); I63.9 Cerebral infarction, unspecified; E11.9 Type 2 diabetes mellitus without complications; I10 Essential (primary) hypertension; Z51.5 Encounter for palliative care; Z91.040 Latex allergy status; Z88.5 Allergy status to narcotic agent; Z79.82 Long term (current) use of aspirin; Z79.899 Other long term (current) drug therapy; Z79.4 Long term (current) use of insulin; W19.XXXA Unspecified fall, initial encounter; Y93.89 Activity, other specified; Y92.098 Other place in other non-institutional residence as the place of occurrence of the external cause; Y99.8 Other external cause status
CPT/HCPCS: 70450; 72100; 72125; 72190; 99285

== ENCOUNTER 2025-07-23 10:55 | Emergency (ER) | payer OTHER ==
[~2025-07-23] VITALS: Ht 165.1 cm; Wt 66.7 kg
[~2025-07-23 10:55] MED LIST changes: +ACET-66 PO; +ASPI-1005 PO; +LIDO1ADH82 TP
--- NOTE | 2025-07-23 12:22 | NUR ---
PT ARRIVED WITH TEMPLE CATHETER ALREADY IN PLACE. NONLATEX TEMPLE CATHETER INSERTED USING STERILE TECHNIQUE. PT TOLERATED PROCEDURE WELL.
[2025-07-23 12:31] LABS: ADD UA MICROSCOPIC YES; APPEARANCE,URINE CLEAR (CLEAR); GLUCOSE, URINE (UA) NEGATIVE (NEGATIVE); LEUKOCYTE ESTERASE ,URINE MODERATE Leu/uL (NEGATIVE); NITRATE,URINE POSITIVE (NEGATIVE); OCCULT BLOOD,URINE TRACE-INTACT (NEGATIVE)
[2025-07-23 13:17] LABS: SQUAMOUS EPITHELIAL CELL,UR Few /HPF (0-2)
[2025-07-23] MEDS ORDERED: SULF1TAB42 PO (13:31)
--- NOTE | 2025-07-23 13:31 | ERN ---
ED Note History of Present Illness Stated Complaint: TEMPLE CATHETER PROBLEM Chief Complaint: Urinary Catheter Problems Time Seen by MD: 10:56 Time Seen by Midlevel: 11:02 Dictation: 80 y/o old male with a history of chronic Temple use brought in by spouse were Tempel exchange. The spouse says today the home health nurse was going to exchange it however at the time that they wanted to deflate the balloon the catheter collapsed an does not want in a withdrawal the the saline in the balloon. Patient denies any urinary symptoms. However spouse states the urine is dark. Allergies: Coded Allergies: codeine (Unverified Allergy, Unknown, RASH, 05/16/25) latex (Unverified Allergy, Unknown, 01/22/20) Home Meds Active Scripts Lidocaine (Lidocaine) 4 % Adh..patch, 1 PATCH TP DAILY for 10 Days, #10 PATCH 0 Refills Prov:ANDREW ANDREWS MD 05/28/25 Acetaminophen (Tylenol) 500 Mg Tab, 1 TAB PO Q6HPRN PRN for pain or fever for 5 Days, #25 TAB 0 Refills Prov:ANDREW ANDREWS MD 05/28/25 Aspirin (ASPIRIN 81MG CHEW TAB) 81 Mg Tab.chew, 1 TAB PO DAILY for 30 Days, #30 TAB 0 Refills Prov:ANDREW ANDREWS MD 05/28/25 Ticagrelor (Brilinta) 90 Mg Tablet, 90 MG PO BID, #60 TAB Prov:CHRIS RAYP 05/19/25 Pantoprazole Sodium (Protonix) 40 Mg Tablet.dr, 40 MG PO DAILY, #60 TAB Prov:CHRIS RAYP 05/19/25 Metoprolol Succinate (Toprol Xl) 25 Mg Tab.er.24h, 25 MG PO BID, #60 TAB Prov:CHRIS RAYP 05/19/25 Furosemide (Lasix 20Mg Tab) 20 Mg Tablet, 20 MG PO DAILY, #60 TAB Prov:CHRIS RAY COMBINATION TECHNICIAN 05/19/25 Atorvastatin Calcium (LIPITOR) 40 Mg Tablet, 40 MG PO HS, #60 TAB Prov:CHRIS RAY COMBINATION TECHNICIAN 05/19/25 Aspirin (ASPIRIN 81 MG ECTAB) 81 Mg Ectab, 81 MG PO DAILY, #60 TAB.EC Prov:CHRIS RAY COMBINATION TECHNICIAN 05/19/25 Reported Medications Hydralazine HCl (Hydralazine HCl) 25 Mg Tablet, 25 MG PO BID, TAB 05/16/25 Allopurinol (Allopurinol) 100 Mg Tablet, 150 MG PO DAILY, TAB 05/16/25 Insulin Glargine,Hum.rec.anlog (Toujeo Max Solostar) 300 Unit/Ml (3 Ml) Insuln.pen, 22 UNIT SQ DAILY, SYRINGE 09/10/24 Fluticasone Propionate (Flonase Nasal [place]) 50 Mcg/Actuation [place], 50 MCG NASAL AD, SPRAY 09/10/24 Vit B Cmplx 3/FA/Vit C/Biotin (Gavi-Holly Rx Tablet) 1 Mg-60 Mg-300 Mcg Tablet, 1 EACH PO AM, TAB 09/10/24 Sodium Bicarbonate (Sodium Bicarbonate) 650 Mg Tablet, 650 MG PO BIDAC, TAB 11/27/22 Clonidine HCl (Clonidine HCl) 0.1 Mg Tablet, 0.1 MG PO Q6HPRN PRN for IF SBP GR EATER THAN 160, TAB 11/27/22 Aspirin (ASPIRIN 81 MG ECTAB) 81 Mg Ectab, 81 MG PO DAILY, TAB.EC 11/27/22 Ranolazine (RANEXA) 500 Mg Tab.er.12h, 500 MG PO BIDAC, TAB 11/27/22 Atorvastatin Calcium (LIPITOR) 80 Mg Tablet, 80 MG PO HS, TAB 11/27/22 Cetirizine HCl (Cetirizine HCl) 10 Mg Tablet, 10 MG PO DAILY, TAB 11/27/22 Past Medical History Past Medical History: Diabetes-Type II, Hypertension, Renal Disese Additional Past Medical Hx: PROSTATE, TEMPLE CATHETER IN PLACED Surgical History: Other Surgical History Other: BLADDER, EYE SURGERY Family History: HTN Social History: Negative, Lives with family Review of System Dictation Constitutional: Negative for fever,chills, and weight loss Eyes: Negative for injury, pain,redness, and discharge ENT: Negative for injury,pain or swelling Cardiovascular: Negative for chest pain, palpitations, and edema Respiratory: Negative for shortness of breath, cough, and wheezing, Abdomen/GI: Negative for abdominal pain, nausea, vomiting, diarrhea, and constipation Back: Negative for injury and pain : Negative for injury, bleeding and discharge MS/Extremity: Negative for injury and deformity Skin: Negative for rash, and discoloration Neuro: Negative for headache, weakness, numbness, tingling, and seizure Psych: Negative for suicide ideation, homicidal ideation, and hallucinations Review of Systems: was completed Initial Vital Sign VS Vital Signs Date Time Temp Pulse Resp B/P (MAP) Pulse Ox O2 Delivery O2 Flow Rate FiO2 07/23/25 10:56 98.1 79 16 122/65 99 Room Air 07/23/25 12:24 0 21 Physical Exam Dictation General: awake, alert, NAD Head/Face: Normocephalic, atraumatic Eyes: PERRL, EOMI, vision at baseline ENT: oral cavity clear, TMs clear, no signs of infection Neck: Trachea midline, supple, no nuchal rigidity Cardiovascular: RRR, normal S1/S2, No MRGs, no JVD Respiratory: CTAB, no respiratory distress, No rales or wheezes Abdomen: Soft, non-tender, non-distended, normal bowel sounds, no guarding or rebound. Skin: Warm, dry, normal turgor, no rash MS/Extremity: Pulses equal, no cyanosis, neurovascular intact, FROM Neuro: COAx4, GCS 15, strength 5/5, CN 2-12 intact, normal cerebellar exam, normal gait, Psych: Normal behavior, mood, and affect normal Results (Laboratory/Radiology) Laboratory/Radiology Laboratory Tests Test 07/23/25 12:18 Urine Color YELLOW (YELLOW) Urine Appearance CLEAR (CLEAR) Urine pH 6.0 (5.0-8.0) Urine Specific [place] 1.020 (1.001-1.031) Urine Protein 100 mg/dL (NEGATIVE) H Urine Glucose (UA) NEGATIVE mg/dL (NEGATIVE) Urine Ketones NEGATIVE mg/dL (NEGATIVE) Urine Occult Blood TRACE-INTACT (NEGATIVE) H Urine Nitrate POSITIVE (NEGATIVE) H Urine Bilirubin NEGATIVE mg/dL (NEGATIVE) Urine Urobilinogen 0.2 mg/dL (0.2-1.0) Urine Leukocyte Esterase MODERATE [place]/uL Urine RBC 6-10 /HPF (0-1) H Urine WBC 51-100 /HPF (0-1) H Urine WBC Clumps (Auto) 6-10 /HPF (0-1) H Urine Squamous Epithelial Cells Few /HPF (0-2) Urine Bacteria Moderate /HPF (None Seen) H Labs Reviewed?: Yes ED Course ED Course Orders Procedure Category Date Status Time Urinalysis Profile LAB 07/23/25 Complete 11:04 *Nursing CPOE 07/23/25 Transmitted Communication: 11:04 Culture Urine NUBIA 07/23/25 In Process 12:33 Vital Signs Date Time Temp Pulse Resp B/P (MAP) Pulse Ox O2 Delivery O2 Flow Rate FiO2 07/23/25 12:24 97.9 81 18 116/55 97 Room Air* 0 21 07/23/25 10:56 98.1 79 16 122/65 99 Room Air Medical Decision Making MDM MDM:80 y/o old male with a history of chronic Temple use brought in by spouse were Temple exchange. The spouse says today the home health nurse was going to exchange it however at the time that they wanted to deflate the balloon the catheter collapsed an does not want in a withdrawal the the saline in the balloon. Patient denies any urinary symptoms. However spouse states the urine is dark. Temple was able to be exchange. Urinary sample was sent. Findings consistent with a UTI. Antibiotics we will be given for discharge and has pushing follow up with his primary doctor. Differential diagnosis: Temple dislodgement, Temple obstruction, urinary tract infection Rationale: Tests considered and ordered secondary to shared decision making include: Previous outside records reviewed: Old ER visits. Risk of complication and/or morbidity or mortality of patient management: None Medications-Per medication reconciliation Need for hospitalization: Patient does not meet criteria for hospitalization. Need for emergency major/minor surgery: No There are no social concerns with this patient. Prescription drug management Prescriptions will include symptomatic care Patient's prior external medical records from other ER visits were reviewed by me as indicated. Prior testing and results from previous visits were reviewed. Prior tests were taken into account with medical decision making and resource utilization, independent historian/historians were used to obtain complete medical history. I independently interpreted the test that were performed, results were reviewed by me and considered findings on radiology if ordered. Medical management and examination interpretation discussions were had by me with other qualified healthcare professionals as indicated for the patient's care. DX & DISP Disposition: Discharge Departure Impression: Primary Impression: Chronic indwelling Temple catheter Additional Impression: UTI (urinary tract infection) Condition: Stable Scripts Sulfamethoxazole/Trimethoprim (Bactrim Ds Tablet) 800 Mg-160 Mg Tablet 1 TAB PO BID for 7 Days, #14 TAB 0 Refills Prov: KHALIF CARLTON CNP 07/23/25 Additional Instructions: Please take antibiotics as prescribed. Follow up with your primary doctor. If you develop back pain, fever, abdominal pain, nausea or vomiting return to the hospital. Referrals: CELINA AGUILA (PCP) Time of Disposition: 13:31 I have reviewed the case, and I agree with, Diagnosis and Plan KHALIF CARLTON CNP Jul 23, 2025 13:31
[2025-07-23 13:35] VITALS: BP 116/78; PULSE 78; RESP 18; TEMP 98.1; O2SAT 97
--- NOTE | 2025-07-23 13:51 | NUR ---
PT ESCORTED TO PRIVATE VEHICLE VIA WHEELCHAIR BY FILIPE LOPEZ
== END 2025-07-23 13:51 | disposition home or self-care (01) ==
LOC: EDH 10:55
DX: T83.9XXA Unspecified complication of genitourinary prosthetic device, implant and graft, initial encounter (principal); N39.0 Urinary tract infection, site not specified; I10 Essential (primary) hypertension; E11.9 Type 2 diabetes mellitus without complications; Z88.5 Allergy status to narcotic agent; Z91.040 Latex allergy status; Z79.899 Other long term (current) drug therapy; Z79.82 Long term (current) use of aspirin; Z79.4 Long term (current) use of insulin; Y84.6 Urinary catheterization as the cause of abnormal reaction of the patient, or of later complication, without mention of misadventure at the time of the procedure
CPT/HCPCS: 51702; 81001; 87086; 87186; 99284

== ENCOUNTER 2025-07-27 02:20 | Inpatient (IN) | payer OTHER ==
[~2025-07-27] VITALS: Ht 165.1 cm; Wt 63.8 kg
[~2025-07-27 02:20] MED LIST changes: +SULF1TAB42 PO
--- NOTE | 2025-07-27 02:25 | NUR ---
CALLED AND SPOKE WITH SHEREE, REQUESTED EKG
[2025-07-27 02:37] LABS: IMMATURE GRANULOCYTE ABSOLUTE 0.02 K/uL (0-1); NUCLEATED RED BLOOD CELLS 0.0 % (0.0-0.19); PLATELET COUNT (AUTO) 216 K/uL (130-400); RED BLOOD CELL COUNT(AUTO) 3.36 MIL/uL (4.50-6.20); RED CELL DISTRIBUTION WIDTH 16.0 % (11.0-15.5); WHITE BLOOD COUNT (AUTO) 7.6 K/uL (4.8-10.8)
--- NOTE | 2025-07-27 02:40 | EKG ---
[facility] Test Date: 2025-07-27 Test Time: 02:37:48 Pat Name: CURT LOPEZ Department: [facility] Room: ED Gender: M Event Attendant: [id number] : 1945 Requested By: TARIQ HEARD Order Number: [id number] Reading MD: Bay Abebe Measurements Intervals [place] Rate: 75 P: 72 TX: 171 QRS: 134 QRSD: 172 T: -45 QT: 485 QTc: 542 Interpretive Statements Sinus rhythm RIGHT BUNDLE BRANCH BLOCK Inferolateral infarct, old Abnrm T, consider ischemia, anterolateral lds Compared to ECG 05/16/2025 06:10:13 Possible ischemia now present Myocardial infarct finding still present Electronically Signed On 07-27-2025 19:07:20 BUDGET AND POLICY ANALYST by Bay Abebe Please click the below link to view image of tracing.
[2025-07-27 02:46] LABS: CREATININE 2.5 mg/dL (0.5-1.3); GLOMERULAR FILTR. RATE CALC 25.0 mL/min (>90); GLUCOSE,RANDOM 92.0 mg/dL (70-105); SODIUM SERUM 128.0 mmol/L (136-145); UREA NITROGEN, BLOOD 34.0 mg/dL (7-18)
[2025-07-27 02:54] LABS: CREATINE KINASE, TOTAL 74.0 U/L (21-232)
--- NOTE | 2025-07-27 03:02 | NUR ---
PATIENT EATING AT THIS TIME, BASE LINE DIET IS THICKEN LIQUIDS TO HONEY CONSISTANCY.
--- NOTE | 2025-07-27 03:09 | ERN ---
ED Note History of Present Illness Stated Complaint: SOB,BILATERAL LOWER EXTREMITY EDEMA Chief Complaint: Multiple Complaints Time Seen by MD: 02:37 Dictation: This is an 80-year-old male who presented to the emergency room with his spouse with complaints of shortness of breath increasing lower extremity edema. Spouse also reported that he had nausea vomitings that started yesterday about 3 epis odes. He has a chronic indwelling Temple that was recently changed in the ER. Patient also reports PND and orthopnea in the past 1 week. He denied any abdominal pain but reports 3 to 4+ pitting edema. No chest pain pressure, palpitations presyncope or syncope. 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chew, 1 TAB PO DAILY for 30 Days, #30 TAB 0 Refills Prov:ANDREW ANDREWS MD 05/28/25 Ticagrelor (Brilinta) 90 Mg Tablet, 90 MG PO BID, #60 TAB Prov:CHRIS RAY [employer]ER [employer] 05/19/25 Pantoprazole Sodium (Protonix) 40 Mg Tablet.dr, 40 MG PO DAILY, #60 TAB Prov:CHRIS RAY [facility] 05/19/25 Metoprolol Succinate (Toprol Xl) 25 Mg Tab.er.24h, 25 MG PO BID, #60 TAB Prov:CHRIS RAY [facility] 05/19/25 Furosemide (Lasix 20Mg Tab) 20 Mg Tablet, 20 MG PO DAILY, #60 TAB Prov:CHRIS RAY [employer] OPERATOR 05/19/25 Atorvastatin Calcium (LIPITOR) 40 Mg Tablet, 40 MG PO HS, #60 TAB Prov:CHRIS RAY [employer] P[employer]ER OPERATOR 05/19/25 Aspirin (ASPIRIN 81 MG ECTAB) 81 Mg Ectab, 81 MG PO DAILY, #60 TAB.EC Prov:CHRIS RAY [facility] 05/19/25 Reported Medications Hydralazine HCl (Hydralazine HCl) 25 Mg Tablet, 25 MG PO BID, TAB 05/16/25 Allopurinol (Allopurinol) 100 Mg Tablet, 150 MG PO DAILY, TAB 05/16/25 Insulin Glargine,Hum.rec.anlog (Toujeo Max Solostar) 300 Unit/Ml (3 Ml) Insuln.pen, 22 UNIT SQ DAILY, SYRINGE 09/10/24 Fluticasone Propionate (Flonase Nasal Owen) 50 Mcg/Actuation Owen, 50 MCG NASAL AD, SPRAY 09/10/24 Vit B Cmplx 3/FA/Vit C/Biotin (Gavi-Holly Rx Tablet) 1 Mg-60 Mg-300 Mcg Tablet, 1 EACH PO AM, TAB 09/10/24 Sodium Bicarbonate (Sodium Bicarbonate) 650 Mg Tablet, 650 MG PO BIDAC, TAB 11/27/22 Clonidine HCl (Clonidine HCl) 0.1 Mg Tablet, 0.1 MG PO Q6HPRN PRN for IF SBP GREATER THAN 160, TAB 11/27/22 Aspirin (ASPIRIN 81 MG ECTAB) 81 Mg Ectab, 81 MG PO DAILY, TAB.EC 11/27/22 Ranolazine (RANEXA) 500 Mg Tab.er.12h, 500 MG PO BIDAC, TAB 11/27/22 Atorvastatin Calcium (LIPITOR) 80 Mg Tablet, 80 MG PO HS, TAB 11/27/22 Cetirizine HCl (Cetirizine HCl) 10 Mg Tablet, 10 MG PO DAILY, TAB 11/27/22 Past Medical History Past Medical History: CVA, Diabetes-Type II, Hypertension, Renal Disese Additional Past Medical Hx: PROSTATE, TEMPLE CATHETER IN PLACED Surgical History: Appendectomy, CABG, Other Surgical History Other: BLADDER, EYE SURGERY Family History: HTN Social History: Negative, Lives with family RN Note Reviewed/Agreed w/PFSH: Yes Review of System Dictation Constitutional: Negative for fever,chills, and weight loss Eyes: Negative for injury, pain,redness, and discharge ENT: Negative for injury,pain or swelling Cardiovascular: Negative for chest pain, palpitations, and positive for weight gain and edema Respiratory: Positive for shortness of breath, denied cough, and wheezing, Abdomen/GI: Negative for abdominal pain, diarrhea, and constipation positive for nausea, vomiting, Back: Negative for injury and pain : Negative for injury, bleeding and discharge MS/Extremity: Negative for injury and deformity Skin: Negative for rash, and discoloration Neuro: Negative for headache, weakness, numbness, tingling, and seizure Psych: Negative for suicide ideation, homicidal ideation, and hallucinations Initial Vital Sign VS Vital Signs Date Time Temp Pulse Resp B/P (MAP) Pulse Ox O2 Delivery O2 Flow Rate FiO2 07/27/25 02:22 97.5 80 18 137/77 100 Room Air 07/27/25 03:07 0 21 Physical Exam Dictation General: awake, alert, NAD Head/Face: Normocephalic, atraumatic Eyes: PERRL, EOMI, vision at baseline ENT: oral cavity clear, TMs clear, no signs of infection Neck: Trachea midline, supple, no nuchal rigidity Cardiovascular: RRR, normal S1/S2, No MRGs, no JVD Respiratory: Decreased breath sounds at the base no respiratory distress, No rales or wheezes Abdomen: Soft, non-tender, non-distended, normal bowel sounds, no guarding or rebound. Skin: Warm, dry, normal turgor, no rash MS/Extremity: Pulses equal, no cyanosis, neurovascular intact, FROM Neuro: COAx4, GCS 15, strength 5/5, CN 2-12 intact, normal cerebellar exam, normal gait, Psych: Normal behavior, mood, and affect normal Extremities-3 people edema without any palpable cords, Homans sign is negative Results (Laboratory/Radiology) Laboratory/Radiology Laboratory Tests Test 07/27/25 02:26 07/27/25 02:55 07/27/25 03:42 White Blood Count 7.6 K/uL (4.8-10.8) Red Blood Count 3.36 MIL/uL (4.50-6.20) L Hemoglobin 9.8 g/dL (14.0-18.0) L Hematocrit 29.3 % (42-54) L Mean Corpuscular Volume 87.2 fL (79-99) Mean Corpuscular Hemoglobin 29.2 pg (27.0-33.0) Mean Corpuscular Hemoglobin Concent 33.4 g/dL (32.0-36.0) Red Cell Distribution Width 16.0 % (11.0-15.5) H Platelet Count 216 K/uL (130-400) Mean Platelet Volume 10.7 fL (7.5-10.5) H Immature Granulocyte % (Auto) 0.3 % (0-1) Neutrophils (%) (Auto) 82.1 % (40.0-77.0) H Lymphocytes (%) (Auto) 8.7 % (21.0-51.0) L Monocytes (%) (Auto) 8.1 % (3.0-13.0) Eosinophils (%) (Auto) 0.4 % (0.0-8.0) Basophils (%) (Auto) 0.4 % (0.0-5.0) Neutrophils # (Auto) 6.2 K/uL (1.8-7.7) Lymphocytes # (Auto) 0.7 K/uL (1.0-4.8) L Monocytes # (Auto) 0.6 K/uL (0.1-1.0) Eosinophils # (Auto) 0.03 K/uL (0.00-0.70) Basophils # (Auto) 0.03 K/uL (0.00-0.20) Absolute Immature Granulocyte (auto 0.02 K/uL (0-1) Nucleated Red Blood Cells 0.0 % (0.0-0.19) White Cell Morphology Comment See comments Sodium Level 128 mmol/L (136-145) L Potassium Level 4.2 mmol/L (3.5-5.1) Chloride Level 97 mmol/L (101-111) L Carbon Dioxide Level 22 mmol/L (21-32) Blood Urea Nitrogen 34 mg/dL (7-18) H Creatinine 2.5 mg/dL (0.5-1.3) H Glomerular Filtration Rate Calc 25 mL/min (>90) Random Glucose 92 mg/dL (70-105) Total Calcium 8.4 mg/dL (8.5-10.1) L Total Creatine Kinase 74 U/L (21-232) Troponin I High Sensitivity 52.6 ng/L (4-75) Urine Color YELLOW (YELLOW) Urine Appearance CLOUDY (CLEAR) H Urine pH 5.5 (5.0-8.0) Urine Specific [place] 1.021 (1.001-1.031) Urine Protein 100 mg/dL (NEGATIVE) H Urine Glucose (UA) NEGATIVE mg/dL (NEGATIVE) Urine Ketones NEGATIVE mg/dL (NEGATIVE) Urine Occult Blood NEGATIVE (NEGATIVE) Urine Nitrate NEGATIVE (NEGATIVE) Urine Bilirubin NEGATIVE mg/dL (NEGATIVE) Urine Urobilinogen 0.2 mg/dL (0.2-1.0) Urine Leukocyte Esterase 250 Noah/uL (NEGATIVE) H Urine RBC 6-10 /HPF (0-1) H Urine WBC 26-50 /HPF (0-1) H Urine Squamous Epithelial Cells RARE /HPF (0-2) Urine Bacteria FEW /HPF (None Seen) Whole Blood Glucose 103 MG/DL (70-110) Labs Reviewed?: Yes EKG Comment: Twelve lead EKG done on 07/27/2025 at 2:37 a.m. shows a heart rate of 75, WI interval 171, QRS 172, QT/QTC 485/542 Impression normal sinus rhythm with a intraventricular conduction delay, prolonged QT interval, presence of Q-waves in the inferior leads suggesting old infarct nonspecific ST-T depressions and changes in the anterolateral leads. In comparison to the EKG done on 05/15/2025 at 10:15 p[address] the changes of ST-T in V2 V3 V4 V5 V6 are definitely new with possibility of ischemia EKG rhythm strip shows a normal sinus rhythm with a intraventricular conduction delay Interpreted by ER MD Dr. Mix X-RAY Comment: REASON: CHEST PAIN ORDERING PHYSICIAN: TARIQ MIX MD PROCEDURE: CXR1VW - CHEST 1VW EXAM: CR Chest, 1 View. CLINICAL HISTORY: CHEST PAIN COMPARISON: Compared with the previous X-ray FINDINGS: LUNGS: There is evidence of prominent bronchovascular markings with thickening of the bronchovascular interstitium in the perihilar region and lower zone, suggestive of early pulmonary edema. PLEURAL SPACES: No evidence of pleural effusion or pneumothorax on the right side. Small volume left pleural effusion. MEDIASTINUM: The cardiomediastinal silhouette is mildly enlarged with pulmonary venous congestion. BONES: No aggressively appearing osseous lesion was seen. IMPRESSION: Cardiomegaly with pulmonary venous congestion. Features of early/interstitial pulmonary edema. Interval worsening Small volume left pleural effusion. Sternal wire, due to post-CABG changes. /[place] DICTATED BY: MIHAELA STOLL Jr., MD DATE: 07/27/25406 ELECTRONICALLY SIGNED BY: MIHAELA STOLL Jr., MD DATE: 07/27/25406 ED Course ED Course Orders Procedure Category Date Status Time Vital Signs Per CPOE 07/27/25 Transmitted Routine 02:23 Chest 1vw RAD 07/27/25 Resulted 02:23 12 Lead Ekg Tracing- EKG 07/27/25 Complete Technical 02:23 Oxygen By Nc/Pulse Ox CPOE 07/27/25 Transmitted 02:23 Maintain Iv CPOE 07/27/25 Transmitted 02:23 Iv Insertion CPOE 07/27/25 Transmitted 02:23 Cardiac Monitoring CPOE 07/27/25 Transmitted 02:23 Pulse Oximetry With CPOE 07/27/25 Transmitted Vs And Prn 02:23 Cbc With Differential LAB 07/27/25 Complete 02:23 Activity: Br W/Brp CPOE 07/27/25 Transmitted With Assist 02:23 Urinalysis Profile LAB 07/27/25 Complete 02:23 Basic Metabolic Panel LAB 07/27/25 Complete 02:23 Cardiac Panel LAB 07/27/25 Complete 02:26 B-Type Natriuretic LAB 07/27/25 Logged Peptide 03:30 Ondansetron 4mg Inj PHA 07/27/25 Logged (Zofran 4mg Inj) 04:30 Edm Admit Bridge Order ADM 07/27/25 Transmitted 04:05 Current Medications Medications (Trade) Dose Ordered Sig/Ganesh Route PRN Reason Start Time Stop Time Status Last Admin Dose Admin Ondansetron HCl (zoFRAN 4MG INJ) 4 mg ONCE ONCE IVP 07/27/25 04:30 07/27/25 04:31 UNV Vital Signs Date Time Temp Pulse Resp B/P (MAP) Pulse Ox O2 Delivery O2 Flow Rate FiO2 07/27/25 03:07 73 18 122/58 98 Room Air* 0 21 07/27/25 02:22 97.5 80 18 137/77 100 Room Air Medical Decision Making MDM Differential diagnosis: COPD exacerbation, congestive heart failure, restrictive ventilatory impairment due to obesity and poor endurance, pulmonary embolus, bilateral pneumonia This is an 80-year-old male who presented to the emergency room with his spouse with complaints of shortness of breath increasing lower extremity edema. Spouse also reported that he had nausea vomitings that started yesterday about 3 episodes. He has a chronic indwelling Temple that was recently changed in the ER. Patient also reports PND and orthopnea in the past 1 week. He denied any abdominal pain but reports 3 to 4+ pitting edema. No chest pain pressure, palpitations presyncope or syncope. 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 labs reviewed CBC showed a white count of 7.6 hemoglobin 9.8 platelets 216. Troponins are negative BNP 7 shows a sodium of 128 chloride 97 BUN and creatinine are 34 and 2.5 Chest x-ray shows cardiomegaly and pulmonary vascular congestion. This also large amount of gas in the bowel seen even a on old chest x-rays. I recommended admission to the hospital for management of decompensated congestive heart failure with the massive edema and pulmonary vascular congestion and the is agreeable 4:10 a.m. patient accepted by joceline mid-level provider for hospitalist group for admission and further management In view of diabetes and likely hypoalbuminemia patient has total body water is up despite intravascularly showing some signs of volume depletion. He may benefit from albumin infusion followed by Lasix to increase oncotic pressure, defer to admitting team Rationale: Tests considered and ordered secondary to shared decision making include: labs, ECG and radiology Previous outside records reviewed: Old ER visits. Risk of complication and/or morbidity or mortality of patient management: None Medications-Per medication reconciliation Need for hospitalization: Patient does meet criteria for hospitalization. Need for emergency major/minor surgery: No There are no social concerns with this patient. Prescription drug management Prescriptions will include symptomatic care Patient's prior external medical records from other ER visits were reviewed by me as indicated. Prior testing and results from previous visits were reviewed. Prior tests were taken into account with medical decision making and resource utilization, independent historian/historians were used to obtain complete medical history. I independently interpreted the test that were performed, results were reviewed by me and considered findings on radiology if ordered. Medical management and examination interpretation discussions were had by me with other qualified healthcare professionals as indicated for the patient's care. 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 I p ersonally reviewed and interpreted all the diagnostic exams performed in the ER today. The patient will be admitted to the hospital for further treatment and evaluation. Disposition-admit to facility Condition-stable/guarded Course-uncertain at this time Pain status-decreased Assessment-exam unchanged Admission Certification- I certify that the patients status is appropriate and is based on my best clinical judgment and the patient's condition as documented in the medical records Referrals: CELINA AGUILA (PCP) TARIQ MIX MD Jul 27, 2025 03:09
[2025-07-27 03:15] LABS: APPEARANCE,URINE CLOUDY (CLEAR); GLUCOSE, URINE (UA) NEGATIVE (NEGATIVE); LEUKOCYTE ESTERASE ,URINE 250 Leu/uL (NEGATIVE); NITRATE,URINE NEGATIVE (NEGATIVE); OCCULT BLOOD,URINE NEGATIVE (NEGATIVE)
[2025-07-27 03:20] LABS: ADD UA MICROSCOPIC YES
[2025-07-27 03:22] LABS: SQUAMOUS EPITHELIAL CELL,UR RARE /HPF (0-2)
--- NOTE | 2025-07-27 04:45 | NUR ---
CARSON ALLEN AND AT BEDSIDE.
--- NOTE | 2025-07-27 06:06 | HP ---
[facility]ORY [facility] PHYSICAL Date of Service: Jul 27, 2025 Time of Service: 05:45 PCP: Hortencia Crowe HISTORY OF PRESENT ILLNESS: This is an 80-year-old male with past medical history of prostate problem ,CVA with left-sided weakness and dysarthria , coronary artery disease with CABG x6, CKD stage 3, CHF, hypertension, hyperlipidemia, and diabetes who presented to the ED for complaints of shortness of breath and increasing edema to bilateral lower extremities started 1 week ago and progressively got worse .Patient has been having difficulty sleeping due to orthopnea and paroxysmal nocturnal dyspnea. Patient sleep usually in the recliner .Patient also reports having nausea and vomiting x 3 episodes yesterday .Patient has a chronic coello catheter which was changed in this ER facility on and has decreased urine output for a few days now as per Riya ,who was at bedside during my evaluation patient has been taking Lasix unable to recall the dose but patient has ran out for the past 1 month ago and [facility] but has not been able to get it she said,so patient had missed his Lasix for almost 1 month she said. Seen and examined patient in the ER awake,alert and coherent.Patient denies chest pain,palpitation,fever,chills and abdominal pain . Vital signs temperature 97.5, heart rate 66, blood pressure 130/75 saturation 99% on room air. Labs: Hemoglobin 9.8, hematocrit 29, platelet count 216. Sodium 128, chloride 97, BUN 34, creatinine 2.5, GFR 25 BNP 2840 troponin 52. Urinalysis positive with urine infection. Chest x-ray result revealed cardiomegaly with pulmonary venous congestion features of early/interstitial pulmonary edema interval worsening. Small volume left pleural effusion sternal wire due to post CABG changes. While in the ER patient received Zofran 4 mg IV. We will admit patient for further medical management. REVIEW OF SYSTEMS CONSTITUTIONAL: Denies fevers, chills, or night sweats. No unintentional weight loss reported. NEUROLOGICAL: Denies headache, amaurosis fugax, motor weakness, sensory deficit, vertigo/spinning sensation, gait abnormalities, or tremors. ENT: No hearing loss, otalgia, otorrhea, rhinitis, rhinorrhea, hoarseness, or sore throat. CARDIOVASCULAR: Complaints of dyspnea on exertion, orthopnea and paroxysmal nocturnal dyspnea Denies any exertional angina, palpitations, life-threatening arrhythmias, claudication. PULMONARY: Complaints of shortness of breaths and occasional cough Denies phlegm/sputum, hemoptysis, pleuritic chest pain. SLEEP: Denies morning headaches, daytime somnolence or napping. Denies difficulty falling asleep, staying asleep, waking from sleep. Denies knowledge of snoring. GASTROINTESTINAL: Denies any type of dysphagia to either liquids or solids. Denies nausea, vomiting, pyrosis, early satiety, abdominal pain, diarrhea, constipation, or changes in stool consistency or caliber. Denies coffee-ground emesis, hematemesis, hematochezia, or melanotic stools. GENITOURINARY: Complaints of decreased and dark urine output Denies frequency, urgency, nocturia, hematuria or incontinence (Storage/Irritative symptoms.) straining to void, urinary intermittency or hesitancy, splitting of the voiding stream, terminal dribbling. ENDOCRINOLOGIC: Denies polyuria, polydipsia, polyphagia or heat/cold intolerances. HEMATOLOGIC: Denies thrombophilia/previous clots, or coagulopathy/bleeding disorders. ONCOLOGIC: Denies personal history of malignancy. DERMATOLOGIC: Denies rashes or pruritus. PSYCHIATRIC: Denies any suicidal or homicidal ideation. Denies hallucinations. PAST MEDICAL HISTORY: [ prostate problem ,CVA with left-sided weakness and dysarthria , coronary artery disease with CABG x6, CKD stage 3, CHF, hypertension, hyperlipidemia, and diabetes ] PAST SURGICAL HISTORY: [ CABG x6,bladder and eye surgery] PAST SOCIAL HISTORY: [Patient lives with . Patient denies alcohol tobacco and recreational drug use ] FAMILY HISTORY: [Hypertension, diabetes and cardiovascular disease ] Coded Allergies: codeine (Unverified Allergy, Unknown, RASH, 05/16/25) latex (Unverified Allergy, Unknown, 01/22/20) PHYSICAL EXAM GENERAL APPEARANCE: The patient is awake, alert, and oriented, in no acute cardiopulmonary distress. NEUROLOGICAL: Cranial nerves II-XII grossly intact. Motor is 5/5 in bilateral upper and lower extremities proximal to distal. No sensory deficits. HEENT: Face is symmetric. Pupils are equal and reactive. Extraocular movements are intact. NECK: Supple. No JVD. No thyromegaly. No submental, submandibular, pre- /postauricular, occipital or supraclavicular lymphadenopathy. CHEST: Normal chest expansion. No Telemetry. LUNGS: Absence of any rales, rhonchi or any wheezing. CARDIOVASCULAR: Regular. S1 and S2 normal. No appreciable rubs, murmurs or gallops. ABDOMEN: Soft, nontender, and nondistended. There is no rebound, voluntary guarding, or rigidity. : Deferred. + Coello. EXTREMITIES: 4+ edema to bilateral lower extremities. SKIN: No skin breakdown. Vital Sign (Last 24 Hours) 07/27/25 07/27/25 02:22 05:43 Temp 97.5 Pulse 66 Resp 18 B/P (MAP) 130/75 Pulse Ox 99 O2 Delivery Room Air* O2 Flow Rate 0 FiO2 21 LABS: Laboratory: Test 07/27/25 03:42 07/27/25 02:55 07/27/25 02:26 Range/Units Whole Blood Glucose 103 70-110 MG/DL Urine Color YELLOW YELLOW Urine Appearance CLOUDY H CLEAR Urine pH 5.5 5.0-8.0 Urine Specific [place] 1.021 1.001-1.031 Urine Protein 100 H NEGATIVE mg/dL Urine Glucose (UA) NEGATIVE NEGATIVE mg/dL Urine Ketones NEGATIVE NEGATIVE mg/dL Urine Occult Blood NEGATIVE NEGATIVE Urine Nitrate NEGATIVE NEGATIVE Urine Bilirubin NEGATIVE NEGATIVE mg/dL Urine Urobilinogen 0.2 0.2-1.0 mg/dL Urine Leukocyte Esterase 250 H NEGATIVE Noah/uL Urine RBC 6-10 H 0-1 /HPF Urine WBC 26-50 H 0-1 /HPF Urine Squamous Epithelial Cells RARE 0-2 /HPF Urine Bacteria FEW None Seen /HPF White Blood Count 7.6 4.8-10.8 K/uL Red Blood Count 3.36 L 4.50-6.20 MIL/uL Hemoglobin 9.8 L 14.0-18.0 g/dL Hematocrit 29.3 L 42-54 % Mean Corpuscular Volume 87.2 79-99 fL Mean Corpuscular Hemoglobin 29.2 27.0-33.0 pg Mean Corpuscular Hemoglobin Concent 33.4 32.0-36.0 g/dL Red Cell Distribution Width 16.0 H 11.0-15.5 % Platelet Count 216 130-400 K/uL Mean Platelet Volume 10.7 H 7.5-10.5 fL Immature Granulocyte % (Auto) 0.3 0-1 % Neutrophils (%) (Auto) 82.1 H 40.0-77.0 % Lymphocytes (%) (Auto) 8.7 L 21.0-51.0 % Monocytes (%) (Auto) 8.1 3.0-13.0 % Eosinophils (%) (Auto) 0.4 0.0-8.0 % Basophils (%) (Auto) 0.4 0.0-5.0 % Neutrophils # (Auto) 6.2 1.8-7.7 K/uL Lymphocytes # (Auto) 0.7 L 1.0-4.8 K/uL Monocytes # (Auto) 0.6 0.1-1.0 K/uL Eosinophils # (Auto) 0.03 0.00-0.70 K/uL Basophils # (Auto) 0.03 0.00-0.20 K/uL Absolute Immature Granulocyte (auto 0.02 0-1 K/uL Nucleated Red Blood Cells 0.0 0.0-0.19 % White Cell Morphology Comment See comments Sodium Level 128 L 136-145 mmol/L Potassium Level 4.2 3.5-5.1 mmol/L Chloride Level 97 L 101-111 mmol/L Carbon Dioxide Level 22 21-32 mmol/L Blood Urea Nitrogen 34 H 7-18 mg/dL Creatinine 2.5 H 0.5-1.3 mg/dL Glomerular Filtration Rate Calc 25 >90 mL/min Random Glucose 92 70-105 mg/dL Total Calcium 8.4 L 8.5-10.1 mg/dL Total Creatine Kinase 74 21-232 U/L Troponin I High Sensitivity 52.6 4-75 ng/L B-Type Natriuretic Peptide 2840 H 0-100 pg/mL DIAGNOSTICS / RADIOLOGY: [ ] ASSESSMENT: Decompensated combined systolic and diastolic heart failure POA Acute on chronic kidney disease POA Bilateral lower extremity edema POA chronic Coello catheter use POA Acute urinary tract infection POA Acute anemia POA Hyponatremia POA Hypertension POA Hyperlipidemia POA Diabetes POA Coronary artery disease with CABG x6 POA History of CVA with left-sided weakness and dysarthria PLAN: We will admit patient in PCCU We will start on heart healthy diet We will start on Lasix 40 mg IV b.i.d. Start on Rocephin 1 g IV daily for empiric coverage We will start on famotidine 20 mg p.o. q.48h for GI prophylaxis We will replace electrolytes as needed per protocol We will start on insulin sliding scale AC & HS with hypoglycemia protocol We will add prn medication for fever,pain,cough , nausea and vomiting We will reconcile home meds once medlist available Strict I&O and daily weight Fluid restriction 1.5 L per day We will follow-up urine culture We will seek Cardiology consultation We will seek Nephrology consultation We will request labs in am Further orders to follow depending on above results Case discussed with attending physician and came up with above treatment and plan of care. ADVANCED CARE PLANNING 1. Which of the following were discussed? Hospice Care - No Therapeutic options - Yes Advance Directives - No Other discussions - 2. Discussed with who? Patient and Riya 3. Voluntary nature of this service was explained to the patient? Yes 4. Amount of time spent - ____26 min___ 5. Reviewed by Physician? (if this service was performed by NPP) Yes Patient seen and examined by me. Agree with note by EL TEACHER SEE ADDITIONAL ORDERS PER CHART DISCUSSED WITH NURSING STAFF ALEN BYRD Jul 27, 2025 06:06
[2025-07-27] MEDS ORDERED: DEXTROSE 50%-WATER 50 ML DISP.SYRIN IV PRN (06:30)
[2025-07-27] MEDS ORDERED: GLUCAGON 1MG KIT 1 MG ML IM PRN (06:30)
[2025-07-27 08:00] VITALS: BP 140/77; PULSE 66; RESP 20; TEMP 97.5; O2SAT 95
[2025-07-27] MEDS: FAMOTIDINE 20MG TAB PO SCH (09:14)
[2025-07-27 12:00] VITALS: BP 134/69; PULSE 79; RESP 24; TEMP 97.6
--- NOTE | 2025-07-27 13:28 | CONS ---
[facility] Cardiology Consultation Note Cardiology consult dictated for Shin Abebe MD Date of service 07/27/[address] Mccarty Chief complaint: Lower extremity edema Reason for consult: Congestive heart failure History of present illness: Patient has a history of CVA residual expressive aphasia. Information was gathered from his son at bedside who appears to be a reliable source and from review of medical records. This is an 80-year-old male was brought into the emergency department for evaluation of shortness of breath and lower extremity edema. He had several episodes of nausea and vomiting. On arrival BNP 2840 with TI 52. He has history of CKD 3 BUN 34, Cr 2.5 and GFR 25. Echocardiogram May 2025 left ventricular ejection fraction 25-30% with a grade diastolic dysfunction, trace aortic regurgitation, moderate mitral regurgitation and trace tricuspid regurgitation. He was in Hospice for some time but now rescinded status. According to he ran out of furosemide since May. Currently he is resting comfortably with head of the bed up 45. Review of systems: Unable to obtain Past medical history: Chronic Blanc catheter, CAD, DVT in 2009, hypertension, severe osteoarthritis, dyslipidemia, right bundle branch block, CKD three, CVA, mild aortic stenosis. Past surgical history: Positive for CABG x6 by Dr. Denilson Hirsch on March 23, 2010 with MONTAGUE to diagonal, SVG to OM, and P ill VB SVG to RCA, and a radial artery to the PDA Allergies: Patient allergic to codeine and latex Family history: Noncontributory Social history: Patient lives with family no tobacco alcohol or illicit drug use Review of blood work: Basic metabolic panel with a sodium of 128, potassium 4.2, BUN of , creatinine of 2.5 and a GFR of 2 5. BNP 2840, troponin 52. CBC white blood cells 7.6, hemoglobin of 9.8 hematocrit 29.3 Platelets of 216. Current medications: Furosemide 40 mg IV b.i.d., famotidine 20 mg every 48 hours, sliding scale. Physical exam: Blood pressure 134/69, heart rate of 79 beats per minute and regular normal S1-S2 no rubs gallops murmurs noted. Neck is supple, jugular vein distention noted, no carotid bruits. Bilateral breath sounds with scattered rales, Blanc catheter present, lower extremities plus three pitting edema. Patient is alert awake and appears oriented. All others within normal limits. 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 NSTEMI CAD s/p 6V CABG (MONTAGUE-LAD, [id number], SVG-RCA-AM and radial artery-RPDA) done on 03/23/2010, s/p LHC/coronary angiogram done on 10/21/2014 which identified a patent MONTAGUE-LAD and SVG-OM1, occluded SVG-RCA-AM, and atretic radial artery- RPDA. Hypertension Dyslipidemia Right bundle branch block CVA residual expressive aphasia DNR/DNI Hospice - Rescinded Plan: 80-year-old male presented for evaluation of dyspnea, orthopnea and lower extremity edema . confirmed patient ran out of furosemide prescription in May. He was DNR DNI on previous admission in May after he suffered a NSTEMI and was discharged home with hospice. Since then this has been rescinded and he is now just with home health. BNP on admission 2840 with negative troponin and no acute findings on 12 lead EKG. He is being diuresed with furosemide IV. We will continue telemetry monitoring, fluid restriction, daily weights and strict I&O. Addendum: Medicines has been reconciled. We will continue with diuresis and fluid restriction. ATTESTATION BY PHYSICIAN I have seen and examined the patient. I reviewed the documentation, medical decision making, and treatment plan as noted by the mid-level provider above. I agree with the findings and plan of care. SHIN ABEBE MD, [facility] Jul 27, 2025 13:28 SHIN ABEBE MD Jul 27, 2025 13:29
--- NOTE | 2025-07-27 13:49 | NUR ---
DCP: HOME Sw met with pt and his Riya Marks [phone]. On May 19 admission, pt was discharged home with [facility] hospice. states she revoked after pt fell at home and did not re admit at discharge. feels that pt is not "ready" for hospice and wants to continue treatment. Pt is a , under care of Babak Bo at [place]. Pt has CERAMIST 3x a wk, nurse 2x a week, and coello and med box set up 2x a month. also assists pt as needed. Pt has a walker, cane, w/c and shower chair. states she will gabriela pt home at hi
[2025-07-27 16:00] VITALS: BP 124/69; PULSE 66; RESP 16; TEMP 97.8
[2025-07-27 20:00] VITALS: O2SAT 95
[2025-07-28] VITALS (7 sets, daily range): BP systolic 121–149; BP diastolic 65–84; PULSE 69–75; RESP 18; TEMP 97.4–98.2; O2SAT 95–100
[2025-07-28 05:43] LABS: IMMATURE GRANULOCYTE ABSOLUTE 0.02 K/uL (0-1); NUCLEATED RED BLOOD CELLS 0.0 % (0.0-0.19); PLATELET COUNT (AUTO) 204 K/uL (130-400); RED BLOOD CELL COUNT(AUTO) 3.49 MIL/uL (4.50-6.20); RED CELL DISTRIBUTION WIDTH 15.9 % (11.0-15.5); WHITE BLOOD COUNT (AUTO) 6.2 K/uL (4.8-10.8)
[2025-07-28 06:02] LABS: ASPARTATE AMINOTRANSFERASE 29.0 U/L (10-37); CREATININE 2.8 mg/dL (0.5-1.3); GLOMERULAR FILTR. RATE CALC 22.0 mL/min (>90); GLUCOSE,RANDOM 197.0 mg/dL (70-105); SODIUM SERUM 131.0 mmol/L (136-145); TOTAL PROTEIN, SERUM 6.8 g/dL (6.0-8.3); UREA NITROGEN, BLOOD 37.0 mg/dL (7-18)
[2025-07-28 06:03] LABS: % IRON SATURATION 14.8 % (30-44); IRON, SERUM 39.0 mcg/dL (65-175)
--- NOTE | 2025-07-28 08:20 | CONS ---
REFERRING PHYSICIAN: Dr. Burnett. REASON FOR CONSULTATION: Renal failure. HISTORY OF PRESENT ILLNESS: The patient is an 80-year-old male with a history of diabetes mellitus, hypertension, and a history of known coronary artery disease status post CABG in the past. The patient presented to the hospital with increasing shortness of breath and orthopnea. The patient apparently had not been compliant with his outpatient oral diuretics. In the Emergency Room, the patient was found to have significant renal dysfunction with an elevated BUN and creatinine as well as significant hyponatremia and he is being seen in consultation for all of the above. PAST MEDICAL HISTORY: Past history of diabetes mellitus, hypertension, coronary artery disease, hypercholesterolemia. PAST SURGICAL HISTORY: CABG. SOCIAL HISTORY: He says he lives independently. There is no alcohol or tobacco use. FAMILY HISTORY: There is no renal disease in the family. ALLERGIES: THE PATIENT IS ALLERGIC TO LATEX. MEDICATIONS: Are all noted. REVIEW OF SYSTEMS: GENERAL: Feeling weak and tired. HEENT: No change in vision. No change in hearing. No nasal discharge. CARDIOVASCULAR: No current chest pain or palpitations. PULMONARY: As described above. GASTROINTESTINAL: He is tolerating a diet. MUSCULOSKELETAL: Complains of weakness. NEUROLOGIC: No history of seizures or focal deficits. PSYCHIATRIC: No history of psychosis. ENDOCRINE: Diabetes mellitus. No history of thyroid disease. HEME: History of anemia. No history of malignancy. PHYSICAL EXAMINATION: VITAL SIGNS: Blood pressure 136/82, pulse 60s. GENERAL: Chronically ill male, elderly, lying in bed on the medical floor. HEENT: Head is atraumatic. Pupils are equal, reactive to light. Oropharynx is without exudate. Nares are clear. NECK: There is no JVP. No thyromegaly. CARDIOVASCULAR: Heart is regular. There is no S3 or S4 gallop. LUNGS: Coarse bilaterally with equal thoracic movement. ABDOMEN: Soft, nondistended, nontender. EXTREMITIES: He has got 3+ edema. NEUROLOGICAL: Awake, alert, and oriented. SKIN: Reveals no rash, no nodules. BACK: There is no CVA tenderness. No back deformities. LABORATORY DATA: Sodium 128, potassium 4.2, BUN 34, creatinine is 2.5, BNP is 2800. Hemoglobin 9.8, hematocrit 23. Urinalysis does reveal some protein in the urine. Chest x-ray reveals pulmonary vascular congestion. IMPRESSION: * Vwylf-wa-[id number] renal failure. * Respiratory distress with anasarca. * Diabetes mellitus. * Hypertension. * Anemia. PLAN: The patient presents with anasarca in the face of noncompliance with his oral diuretics. The patient was started on IV Lasix. He will be given a dose of metolazone 5 mg p.o. x 1 and will follow the urine output closely. The patient with evidence of renal dysfunction. No need for renal replacement therapy at this time. He does have significant anemia. We will check iron levels for completeness. We will send off urinalysis for electrolytes as well as protein and will follow closely. The patient and family are at the bedside. Multiple questions were all answered. TID: [id number] RECEIPT: [id number]
[2025-07-28] MEDS: ASPIRIN 81MG CHEW TAB PO SCH (08:29)
[2025-07-28] MEDS: ISOSORBIDE MONO 30MG SR TAB PO SCH (08:30)
--- NOTE | 2025-07-28 09:09 | PN ---
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 NSTEMI 10 CAD s/p 6V CABG (MONTAGUE-LAD, [id number], SVG-RCA-AM and radial artery-RPDA) done on 03/23/2010, s/p LHC/coronary angiogram done on 10/21/2014 which identified a patent MONTAGUE-LAD and SVG-OM1, occluded SVG-RCA-AM, and atretic radial artery-RPD A. Hypertension Dyslipidemia Right bundle branch block CVA residual expressive aphasia DNR/DNI Hospice - Rescinded Interval History: Pt evaluated in his room on PCCU. He is s/p initiation of diuresis. Pt's renal function and BNP are both slightly worsening this morning despite efforts to diurese. BP/HR remain adequate for perfusion. He has no complaints of chest pain, sob present with exertion. Pt's weight is down but we are unsure of accuracy. Nursing to keep strict i/o. Nephrology following, no recommendations for HD at this time, continues on furosemide and metolazone. CXR with cardiomegaly and congestive changes. Pt currently oxygenating adequately on room air at rest. Physical Examination: GENERAL: [No acute distress.] HEAD: [Normal with no signs of head trauma.] EYES: [PERRLA, EOMI, conjunctiva and sclera normal.] ENT: [Hearing grossly intact, normal oropharynx.] NECK: [Supple without JVD. There is no tenderness, lymphadenopathy, or masses. No thyromegaly. Normal carotid upstrokes without bruits.] LUNGS: [Clear breath sounds bilaterally. There are right basilar rales one third of the way up the chest. No wheezes, or rhonchi.] HEART: [Normal rate and rhythm. Normal S1 and S2 without mumurs, gallop or rub.] VASC: [Peripheral pulses +2 bilaterally.] ABD: [Bowel sounds normal, soft, nontender, no masses, no organomegaly. No audible bruits.] : [Not examined] LYMPH: [No lymphadenopathy noted.] EXT: [No clubbing, cyanosis or edema.] SKIN: [No rashes or lesions noted.] NEURO: [Awake, alert, and oriented x3. No focal sensory or strength deficits n oted.] Laboratory: [ ] Hematology Labs: Test 07/28/25 05:26 07/27/25 02:26 Range/Units White Blood Count 6.2 4.8-10.8 K/uL Red Blood Count 3.49 L 4.50-6.20 MIL/uL Hemoglobin 10.1 L 14.0-18.0 g/dL Hematocrit 30.4 L 42-54 % Mean Corpuscular Volume 87.1 79-99 fL Mean Corpuscular Hemoglobin 28.9 27.0-33.0 pg Mean Corpuscular Hemoglobin Concent 33.2 32.0-36.0 g/dL Red Cell Distribution Width 15.9 H 11.0-15.5 % Platelet Count 204 130-400 K/uL Mean Platelet Volume 10.9 H 7.5-10.5 fL Immature Granulocyte % (Auto) 0.3 0-1 % Neutrophils (%) (Auto) 74.2 40.0-77.0 % Lymphocytes (%) (Auto) 12.4 L 21.0-51.0 % Monocytes (%) (Auto) 11.0 3.0-13.0 % Eosinophils (%) (Auto) 1.3 0.0-8.0 % Basophils (%) (Auto) 0.8 0.0-5.0 % Neutrophils # (Auto) 4.6 1.8-7.7 K/uL Lymphocytes # (Auto) 0.8 L 1.0-4.8 K/uL Monocytes # (Auto) 0.7 0.1-1.0 K/uL Eosinophils # (Auto) 0.08 0.00-0.70 K/uL Basophils # (Auto) 0.05 0.00-0.20 K/uL Absolute Immature Granulocyte (auto 0.02 0-1 K/uL Nucleated Red Blood Cells 0.0 0.0-0.19 % White Cell Morphology Comment See comments Chemistry Labs: Test 07/28/25 06:24 07/28/25 05:26 07/27/25 02:26 Range/Units Whole Blood Glucose 183 H 70-110 MG/DL Sodium Level 131 L 136-145 mmol/L Potassium Level 4.2 3.5-5.1 mmol/L Chloride Level 95 L 101-111 mmol/L Carbon Dioxide Level 21 21-32 mmol/L Blood Urea Nitrogen 37 H 7-18 mg/dL Creatinine 2.8 H 0.5-1.3 mg/dL Glomerular Filtration Rate Calc 22 >90 mL/min Random Glucose 197 H 70-105 mg/dL Total Calcium 8.7 8.5-10.1 mg/dL Iron Level 39 #L 65-175 mcg/dL Total Iron Binding Capacity 263 250-450 mcg/dL Percent Iron Saturation 14.8 L 30-44 % Total Bilirubin 0.6 0.2-1.0 mg/dL Aspartate Amino Transf (AST/SGOT) 29 10-37 U/L Alanine Aminotransferase (ALT/SGPT) 29 12-78 U/L Alkaline Phosphatase 83 50-136 U/L B-Type Natriuretic Peptide 3370 H 0-100 pg/mL Total Protein 6.8 6.0-8.3 g/dL Albumin 3.5 3.5-5.0 g/dL Total Creatine Kinase 74 21-232 U/L Troponin I High Sensitivity 52.6 4-75 ng/L Diagnostics / Radiology: [Copy/Paste Echos/Imaging Report here] Impression and Plan: Continue to diurese as able, pt followed by nephrology as well, monitoring his renal function EF is poor, but not a candidate for GDMT therapy secondary to his renal dysfunction HR and BP are adequately controlled. Supportive care Goals of care to be discussed with family. Poor prognosis. MADISON SOLOMON AGACNP Jul 28, 2025 09:09
--- NOTE | 2025-07-28 12:02 | PN ---
FOLLOWUP PROGRESS NOTE SUBJECTIVE: An 80-year-old male with a history of diabetes mellitus and hypertension, who initially presented with congestive heart failure and cardiomyopathy. The patient has had acute on chronic renal dysfunction in the hospital. Creatinine has been elevated. The patient was started on the diuretics and pulmonary symptoms are much improved. The patient is also being seen by Cardiology. REVIEW OF SYSTEMS: GENERAL: He is feeling improved. HEENT: No change in vision. No change in hearing. CARDIOVASCULAR: There is no current chest pain or palpitations. PULMONARY: Shortness of breath has improved. GASTROINTESTINAL: He is tolerating a diet. MUSCULOSKELETAL: Complaints of weakness. PHYSICAL EXAMINATION: VITAL SIGNS: Blood pressure 149/80, pulse in the 70s. GENERAL: Chronically ill male, elderly, lying in bed on the medical floor. HEENT: Traumatic. Pupils are equal, round, and reactive to light. Oropharynx is without exudate. Nares clear. NECK: There is no JVP. There is no thyromegaly, no mass. CARDIOVASCULAR: Regular. There is no S3 or S4 gallop. LUNGS: Coarse with equal thoracic movement. ABDOMEN: Soft, nontender, nontender. EXTREMITIES: Reveal no clubbing or cyanosis. NEUROLOGICAL: He is awake. He is alert. LABORATORY DATA: Sodium 131, potassium 4.2, BUN 37, creatinine 2.8, iron levels are noted, hemoglobin 10, and hematocrit 30. IMPRESSION: * Acute on chronic renal failure. * Congestive heart failure. * Cardiomyopathy. * Hypertension. * Anemia. PLAN: The patient has a history of known chronic renal insufficiency. The patient's creatinine is noted. There is no need for any form of renal replacement therapy. The patient is being seen by Cardiology. The patient is encouraged with his compliance upon discharge. The patient will be given a dose of Venofer for the anemia. Once the patient is discharged, the patient will follow up in the renal clinic. TID: [id number] RECEIPT: [id number]
--- NOTE | 2025-07-28 20:36 | PN ---
[facility] PROGRESS NOTE Date of Service: Jul 28, 2025 Time of Service: 20:36 SUBJECTIVE: [ ] 07/28/25 Pt evaluated in his room on PCCU. He is being diuresed. Pt's renal function and BNP are both slightly worsening this morning despite efforts to d iurese. BP/HR remain adequate for perfusion. He has no complaints of chest pain, sob present with exertion. Pt's weight is down but we are unsure of accuracy. Nursing to keep strict i/o. Nephrology following, no recommendations for HD at this time, continues on furosemide and metolazone. CXR with cardiomegaly and congestive changes. Pt currently oxygenating adequately on room air at rest. REVIEW OF SYSTEMS CONSTITUTIONAL: Denies fevers, chills, or night sweats. No unintentional weight loss reported. NEUROLOGICAL: Denies headache, amaurosis fugax, motor weakness, sensory deficit, vertigo/spinning sensation, gait abnormalities, or tremors. ENT: No hearing loss, otalgia, otorrhea, rhinitis, rhinorrhea, hoarseness, or sore throat. CARDIOVASCULAR: Complaints of dyspnea on exertion, orthopnea and paroxysmal nocturnal dyspnea Denies any exertional angina, palpitations, life-threatening arrhythmias, claudication. PULMONARY: Complaints of shortness of breaths and occasional cough Denies phl egm/sputum, hemoptysis, pleuritic chest pain. SLEEP: Denies morning headaches, daytime somnolence or napping. Denies difficulty falling asleep, staying asleep, waking from sleep. Denies knowledge of snoring. GASTROINTESTINAL: Denies any type of dysphagia to either liquids or solids. Denies nausea, vomiting, pyrosis, early satiety, abdominal pain, diarrhea, constipation, or changes in stool consistency or caliber. Denies coffee-ground emesis, hematemesis, hematochezia, or melanotic stools. GENITOURINARY: Complaints of decreased and dark urine output Denies frequency, urgency, nocturia, hematuria or incontinence (Storage/Irritative symptoms.) straining to void, urinary intermittency or hesitancy, splitting of the voiding stream, terminal dribbling. ENDOCRINOLOGIC: Denies polyuria, polydipsia, polyphagia or heat/cold intolerances. HEMATOLOGIC: Denies thrombophilia/previous clots, or coagulopathy/bleeding disorders. ONCOLOGIC: Denies personal history of malignancy. DERMATOLOGIC: Denies rashes or pruritus. PSYCHIATRIC: Denies any suicidal or homicidal ideation. Denies hallucinations. PHYSICAL EXAM GENERAL APPEARANCE: The patient is awake, alert, and oriented, in no acute cardiopulmonary distress. NEUROLOGICAL: Cranial nerves II-XII grossly intact. Motor is 5/5 in bilateral upper and lower extremities proximal to distal. No sensory deficits. HEENT: Face is symmetric. Pupils are equal and reactive. Extraocular movements are intact. NECK: Supple. No JVD. No thyromegaly. No submental, submandibular, pre- /postauricular, occipital or supraclavicular lymphadenopathy. CHEST: Normal chest expansion. No Telemetry. LUNGS: Absence of any rales, rhonchi or any wheezing. CARDIOVASCULAR: Regular. S1 and S2 normal. No appreciable rubs, murmurs or gallops. ABDOMEN: Soft, nontender, and nondistended. There is no rebound, voluntary guarding, or rigidity. : Deferred. + Blanc. EXTREMITIES: 4+ edema to bilateral lower extremities. SKIN: No skin breakdown. Vital Signs (last 8hr) Date Time Temp Pulse Resp B/P (MAP) Pulse Ox O2 Delivery O2 Flow Rate FiO2 07/28/25 19:30 98.2 69 18 121/73 100 Room Air 07/28/25 16:44 98.1 75 18 138/81 95 Room Air LABS: Laboratory: Test 07/28/25 19:55 07/28/25 05:26 07/27/25 02:55 07/27/25 02:26 Range/Units Whole Blood Glucose 127 H 70-110 MG/DL White Blood Count 6.2 4.8-10.8 K/uL Red Blood Count 3.49 L 4.50-6.20 MIL/uL Hemoglobin 10.1 L 14.0-18.0 g/dL Hematocrit 30.4 L 42-54 % Mean Corpuscular Volume 87.1 79-99 fL Mean Corpuscular Hemoglobin 28.9 27.0-33.0 pg Mean Corpuscular Hemoglobin Concent 33.2 32.0-36.0 g/dL Red Cell Distribution Width 15.9 H 11.0-15.5 % Platelet Count 204 130-400 K/uL Mean Platelet Volume 10.9 H 7.5-10.5 fL Immature Granulocyte % (Auto) 0.3 0-1 % Neutrophils (%) (Auto) 74.2 40.0-77.0 % Lymphocytes (%) (Auto) 12.4 L 21.0-51.0 % Monocytes (%) (Auto) 11.0 3.0-13.0 % Eosinophils (%) (Auto) 1.3 0.0-8.0 % Basophils (%) (Auto) 0.8 0.0-5.0 % Neutrophils # (Auto) 4.6 1.8-7.7 K/uL Lymphocytes # (Auto) 0.8 L 1.0-4.8 K/uL Monocytes # (Auto) 0.7 0.1-1.0 K/uL Eosinophils # (Auto) 0.08 0.00-0.70 K/uL Basophils # (Auto) 0.05 0.00-0.20 K/uL Absolute Immature Granulocyte (auto 0.02 0-1 K/uL Nucleated Red Blood Cells 0.0 0.0-0.19 % Sodium Level 131 L 136-145 mmol/L Potassium Level 4.2 3.5-5.1 mmol/L Chloride Level 95 L 101-111 mmol/L Carbon Dioxide Level 21 21-32 mmol/L Blood Urea Nitrogen 37 H 7-18 mg/dL Creatinine 2.8 H 0.5-1.3 mg/dL Glomerular Filtration Rate Calc 22 >90 mL/min Random Glucose 197 H 70-105 mg/dL Total Calcium 8.7 8.5-10.1 mg/dL Iron Level 39 #L 65-175 mcg/dL Total Iron Binding Capacity 263 250-450 mcg/dL Percent Iron Saturation 14.8 L 30-44 % Total Bilirubin 0.6 0.2-1.0 mg/dL Aspartate Amino Transf (AST/SGOT) 29 10-37 U/L Alanine Aminotransferase (ALT/SGPT) 29 12-78 U/L Alkaline Phosphatase 83 50-136 U/L B-Type Natriuretic Peptide 3370 H 0-100 pg/mL Total Protein 6.8 6.0-8.3 g/dL Albumin 3.5 3.5-5.0 g/dL Urine Color YELLOW YELLOW Urine Appearance CLOUDY H CLEAR Urine pH 5.5 5.0-8.0 Urine Specific [place] 1.021 1.001-1.031 Urine Protein 100 H NEGATIVE mg/dL Urine Glucose (UA) NEGATIVE NEGATIVE mg/dL Urine Ketones NEGATIVE NEGATIVE mg/dL Urine Occult Blood NEGATIVE NEGATIVE Urine Nitrate NEGATIVE NEGATIVE Urine Bilirubin NEGATIVE NEGATIVE mg/dL Urine Urobilinogen 0.2 0.2-1.0 mg/dL Urine Leukocyte Esterase 250 H NEGATIVE Noah/uL Urine RBC 6-10 H 0-1 /HPF Urine WBC 26-50 H 0-1 /HPF Urine Squamous Epithelial Cells RARE 0-2 /HPF Urine Bacteria FEW None Seen /HPF White Cell Morphology Comment See comments Total Creatine Kinase 74 21-232 U/L Troponin I High Sensitivity 52.6 4-75 ng/L Current Medications Medications (Trade) Dose Ordered Sig/Ganesh Route PRN Reason Start Time Stop Time Status Last Admin Dose Admin Acetaminophen (TYLenol 325MG TAB) 650 mg Q4H PRN PO MILD PAIN (1-3) 07/27/25 06:30 08/26/25 06:29 Acetaminophen (TYLenol 325MG TAB) 650 mg Q6H PRN PO TEMPERATURE GREATER THAN 101.5 07/27/25 06:30 08/26/25 06:29 Allopurinol (ZYLOprim 100MG) 150 mg DAILY PO 07/28/25 09:00 08/27/25 08:59 07/28/25 08:30 150 MG Aspirin (Aspirin 81mg Chew Tab) 81 mg DAILY PO 07/28/25 09:00 08/27/25 08:59 07/28/25 08:29 81 MG Atorvastatin Calcium (LIPItor 40MG) 40 mg HS PO 07/27/25 21:00 08/26/25 20:59 07/27/25 20:13 40 MG Ceftriaxone Sodium (ROCEphine 1G INJ) 1 gm Q24H IV 07/27/25 06:30 08/06/25 06:29 07/28/25 06:16 1 GM Dextrose (D50w) 50 ml AD PRN IV HYPOGLYCEMIA PROTOCOL 07/27/25 06:30 08/26/25 06:29 Famotidine (Pepcid 20mg Tab) 20 mg Q48H PO 07/27/25 09:00 08/26/25 08:59 07/27/25 09:14 20 MG Furosemide (LASix 40MG VIAL) 40 mg BID IVP 07/27/25 09:00 08/26/25 08:59 07/28/25 08:30 40 MG Glucagon (Glucagon 1mg Kit) 1 mg AD PRN IM HYPOGLYCEMIA PROTOCOL 07/27/25 06:30 08/26/25 06:29 Hydralazine HCl ([id number] TAB) 25 mg BID PO 07/27/25 21:00 08/26/25 20:59 07/28/25 08:33 25 MG Insulin Human Regular (humuLIN R 100 UNIT/ML 3ML) INSULIN SLIDING SCAL... ACHS SQ 07/27/25 07:30 08/26/25 07:29 07/28/25 16:01 3 UNIT Isosorbide Mononitrate (Imdur 30mg Sr) 15 mg DAILY PO 07/28/25 09:00 08/27/25 08:59 07/28/25 08:30 15 MG Metoprolol Succinate (TopROL XL) 25 mg BID PO 07/27/25 21:00 08/26/25 20:59 07/28/25 08:30 25 MG Ondansetron HCl (zoFRAN 4MG INJ) 4 mg Q6H PRN IV NAUSEA/VOMITING 07/27/25 06:30 08/26/25 06:29 Pantoprazole Sodium (PROTonix 40MG TAB) 40 mg DAILY PO 07/28/25 09:00 07/27/25 13:09 DC Ticagrelor (BRILinta) 90 mg BID PO 07/27/25 21:00 08/26/25 20:59 07/28/25 08:30 90 MG DIAGNOSTICS / RADIOLOGY: [ ] ASSESSMENT: Decompensated combined systolic and diastolic heart failure POA Acute on chronic kidney disease POA Bilateral lower extremity edema POA chronic Blanc catheter use POA Acute urinary tract infection POA Acute anemia POA Hyponatremia POA Hypertension POA Hyperlipidemia POA Diabetes POA Coronary artery disease with CABG x6 POA History of CVA with left-sided weakness and dysarthria PLAN: We will admit patient in PCCU We will start on heart healthy diet We will start on Lasix 40 mg IV b.i.d. Start on Rocephin 1 g IV daily for empiric coverage We will start on famotidine 20 mg p.o. q.48h for GI prophylaxis We will replace electrolytes as needed per protocol We will start on insulin sliding scale AC & HS with hypoglycemia protocol We will add prn medication for fever,pain,cough , nausea and vomiting We will reconcile home meds once medlist available Strict I&O and daily weight Fluid restriction 1.5 L per day We will follow-up urine culture We will seek Cardiology consultation We will seek Nephrology consultation We will request labs in am Further orders to follow depending on above results Case discussed with attending physician and came up with above treatment and plan of care. ANGEL LUQUE MD Jul 28, 2025 20:36
[2025-07-28] MEDS ORDERED: COMPOUND IV MISC 1 EACH IVSOLN MISC PRN (21:00)
[2025-07-29 00:30] VITALS: BP 126/74; PULSE 66; RESP 18; TEMP 97.5
[2025-07-29 03:30] VITALS: BP 126/74; PULSE 64; RESP 18; TEMP 97.5
[2025-07-29 07:37] LABS: CREATININE 2.7 mg/dL (0.5-1.3); GLOMERULAR FILTR. RATE CALC 23.0 mL/min (>90); GLUCOSE,RANDOM 141.0 mg/dL (70-105); SODIUM SERUM 131.0 mmol/L (136-145); UREA NITROGEN, BLOOD 39.0 mg/dL (7-18)
[2025-07-29 07:50] VITALS: BP 141/76; PULSE 70; RESP 16; TEMP 98.2
[2025-07-29 08:00] VITALS: O2SAT 95
[2025-07-29 11:52] VITALS: BP 117/67; PULSE 60; RESP 16; TEMP 97.8
--- NOTE | 2025-07-29 13:51 | PN ---
PROGRESS NOTE PROBLEM LIST: Acute on chronic combined systolic and diastolic congestive heart failure CKD stage 4 Echocardiogram May 2025 left ventricular ejection fraction 25-30% with a grade diastolic dysfunction, trace aortic regurgitation, moderate mitral regurgitation and trace tricuspid regurgitation. NSTEMI CAD s/p 6V CABG (MONTAGUE-LAD, [id number], SVG-RCA-AM and radial artery-RPDA) done on 03/23/2010, s/p LHC/coronary angiogram done on 10/21/2014 which identified a patent MONTAGUE-LAD and SVG-OM1, occluded SVG-RCA-AM, and atretic radial artery- RPDA. Hypertension Dyslipidemia Right bundle branch block CVA residual expressive aphasia DNR/DNI Hospice - Rescinded INTERIM HISTORY OF PRESENT ILLNESS: Overall patient is doing well overnight. Patient has been maintained on Lasix 40 mg IV b.i.d. and needs to be transitioned over to oral. Patient's is at bedside during my conversation and evaluation with the patient. She is answering all questions as patient has expressive aphasia from prior CVA REVIEW OF SYSTEMS: Obtained from VITAL SIGNS Vital Signs Date Time Temp Pulse Resp B/P (MAP) Pulse Ox O2 Delivery O2 Flow Rate FiO2 07/29/25 11:52 97.9 60 16 117/67 95 Room Air 07/29/25 08:00 0 21 Laboratory Tests 07/29/25 07:16 LABS/MEDS Laboratory Tests Test 07/28/25 15:31 07/28/25 19:55 07/29/25 05:58 07/29/25 07:16 Whole Blood Glucose 207 MG/DL (70-110) H 127 MG/DL (70-110) H 137 MG/DL (70-110) H Sodium Level 131 mmol/L (136-145) L Potassium Level 3.6 mmol/L (3.5-5.1) Chloride Level 97 mmol/L (101-111) L Carbon Dioxide Level 24 mmol/L (21-32) Blood Urea Nitrogen 39 mg/dL (7-18) H Creatinine 2.7 mg/dL (0.5-1.3) H Glomerular Filtration Rate Calc 23 mL/min (>90) Random Glucose 141 mg/dL (70-105) H Total Calcium 8.7 mg/dL (8.5-10.1) Test 07/29/25 11:39 Whole Blood Glucose 227 MG/DL (70-110) #H Current Medications Ondansetron HCl 4 mg ONCE ONCE IVP Last administered on 07/27/25at 04:37; Start 07/27/25 at 04:30; Stop 07/27/25 at 04:31; Status DC Acetaminophen 650 mg Q6H PRN PO; Start 07/27/25 at 06:30; Stop 08/26/25 at 06:29 Acetaminophen 650 mg Q4H PRN PO; Start 07/27/25 at 06:30; Stop 08/26/25 at 06:29 Ondansetron HCl 4 mg Q6H PRN IV; Start 07/27/25 at 06:30; Stop 08/26/25 at 06:29 Famotidine 20 mg Q48H PO Last administered on 07/29/25at 08:59; Start 07/27/25 at 09:00; Stop 08/26/25 at 08:59 Furosemide 40 mg BID IVP Last administered on 07/29/25at 08:58; Start 07/27/25 at 09:00; Stop 08/26/25 at 08:59 Ceftriaxone Sodium 1 gm Q24H IV Last administered on 07/29/25at 06:16; Start 07/27/25 at 06:30; Stop 08/06/25 at 06:29 Insulin Human Regular INSULIN SLIDING SCAL... ACHS SQ Last administered on 07/29/25at 11:53; Start 07/27/25 at 07:30; Stop 08/26/25 at 07:29 Dextrose 50 ml AD PRN IV; Start 07/27/25 at 06:30; Stop 08/26/25 at 06:29 Glucagon 1 mg AD PRN IM; Start 07/27/25 at 06:30; Stop 08/26/25 at 06:29 Metolazone 5 mg ONCE ONCE PO Last administered on 07/27/25at 09:29; Start 07/27/25 at 09:00; Stop 07/27/25 at 09:01; Status DC Allopurinol 150 mg DAILY PO Last administered on 07/29/25at 08:59; Start 07/28/25 at 09:00; Stop 08/27/25 at 08:59 Aspirin 81 mg DAILY PO Last administered on 07/29/25at 08:59; Start 07/28/25 at 09:00; Stop 08/27/25 at 08:59 Atorvastatin Calcium 40 mg HS PO Last administered on 07/28/25at 20:29; Start 07/27/25 at 21:00; Stop 08/26/25 at 20:59 Hydralazine HCl 25 mg BID PO Last administered on 07/29/25at 08:58; Start 07/27/25 at 21:00; Stop 08/26/25 at 20:59 Metoprolol Succinate 25 mg BID PO Last administered on 07/29/25at 08:58; Start 07/27/25 at 21:00; Stop 08/26/25 at 20:59 Pantoprazole Sodium 40 mg DAILY PO; Start 07/28/25 at 09:00; Stop 07/27/25 at 13:09; Status DC Ticagrelor 90 mg BID PO Last administered on 07/29/25at 08:58; Start 07/27/25 at 21:00; Stop 08/26/25 at 20:59 Isosorbide Mononitrate 15 mg DAILY PO Last administered on 07/29/25at 08:59; Start 07/28/25 at 09:00; Stop 08/27/25 at 08:59 Iron Sucrose 300 mg/Sodium Chloride 250 ml @ 83 mls/hr ONCE ONCE IV Last administered on 07/28/25at 21:27; Start 07/28/25 at 21:00; Stop 07/29/25 at 00:00; Status DC PHYSICAL EXAMINATION: GENERAL: No acute distress. HEENT: Normocephalic, atraumatic. CARDIAC: Positive S1 and S2. No murmurs. LUNGS: Clear to auscultation bilaterally. ABDOMEN: Bowel sounds present, soft, nontender. EXTREMITIES: No edema bilaterally. NEUROLOGIC: Cranial nerves 2-12 grossly intact. PSYCHIATRIC: Calm. TELEMETRY: Sinus rhythm ASSESSMENT: []Acute on chronic combined systolic and diastolic congestive heart failure CKD stage 4 Echocardiogram May 2025 left ventricular ejection fraction 25-30% with a grade diastolic dysfunction, trace aortic regurgitation, moderate mitral regurgitation and trace tricuspid regurgitation. NSTEMI CAD s/p 6V CABG (MONTAGUE-LAD, [id number], SVG-RCA-AM and radial artery-RPDA) done on 03/23/2010, s/p LHC/coronary angiogram done on 10/21/2014 which identified a patent MONTAGUE-LAD and SVG-OM1, occluded SVG-RCA-AM, and atretic radial artery- RPDA. Hypertension Dyslipidemia Right bundle branch block CVA residual expressive aphasia DNR/DNI Hospice - Rescinded PLAN: [] Have transition to oral Lasix. Cardiac-rankin the patient can be dismissed home. tells us that Lasix from [facility] has a arrived and they do have been in the house. I have requested compliance with patient's medications diuresis as well as to see and follow up with the PCP in 1 week and primary rotary cutter feeder Dr. Szymanski me in 2-3 weeks. OTTO FELIZ MD Jul 29, 2025 13:51
[2025-07-29 16:18] VITALS: BP 131/69; PULSE 75; RESP 16; TEMP 98
[2025-07-29] MEDS ORDERED: FURO80TA3 PO (16:49)
--- NOTE | 2025-07-29 17:16 | NUR ---
PATIENT ALERT WITH SPOUSE A BEDSIDE BEING DISCHARGED HOME. PATIENT ALREADY HAS HOME HEALTH. EDUCATED TO RESUME ALL HOME MEDICATION INCLUDING TO TAKE LASIX 80MG BID. STATES THAT SHE HAS ALL MEDICATIONS AT HOME INCLUDING LASIX THAT SHE RECEIVED YESTERDAY FROM PHARMACY. IV REMOVED WITHOUT COMPLICATIONS. EDUCATED TO CALL ON SUNDAY AND MAKE DIEGO WITH DR. MONROE, DR. TOLEDO AND PCP. ALL QUESTIONS ANSWERED, SPOUSE VERBALIZED COMPLETE UNDERSTANDING. SPOUSE GATHERED ALL BELONGINGS AND TOOK WITH HER AT [facility].
--- NOTE | 2025-07-29 20:44 | PN ---
FOLLOWUP PROGRESS NOTE An 80-year-old male with history of known cardiomyopathy, initially presented with congestive heart failure, volume overload. The patient had been noncompliant with his diuretics. The patient started back on the IV Lasix and pulmonary symptoms have greatly improved. The patient's urine output has greatly improved. He has a history of known renal dysfunction. Creatinine has been elevated and the patient is being seen for all of the above. SUBJECTIVE: He is feeling improved since admission. REVIEW OF SYSTEMS: HEENT: No change in vision. No change in hearing. CARDIOVASCULAR: There are no current chest pains, palpitations. PULMONARY: Shortness of breath has improved. GASTROINTESTINAL: The patient is tolerating a diet. MUSCULOSKELETAL: Complains of weakness. PHYSICAL EXAMINATION: VITAL SIGNS: Blood pressure 141/76, pulse 70. GENERAL: He is a chronically old male, elderly, lying in bed on the medical floor. HEENT: Atraumatic. Pupils equal round and reactive to light. Oropharynx is without exudate. Nares clear. NECK: There is no JVP. There is no thyromegaly. No mass. CARDIOVASCULAR: Regular. There is no S3 or S4 gallop. LUNGS: Coarse with equal thoracic movement. ABDOMEN: Abdomen is soft, nontender, nontender. EXTREMITIES: Edema is improved. NEUROLOGICAL: Neurologically, he is at his baseline. LABORATORY DATA: Sodium 131, BUN 39, creatinine 2.7, hemoglobin 30. IMPRESSION: * Acute on chronic renal failure. * Cardiomyopathy. * Diabetes mellitus. * Hypertension. PLAN: The patient with history of chronic renal insufficiency. Creatinine is noted. The patient remains on the diuretics and workup is ongoing per Cardiology. Electrolytes have all been aggressively repleted. Blood pressure is under adequate control. We will continue to follow closely. Once the patient is discharged, he can follow up in the [facility]. TID: [id number] RECEIPT: [id number]
== END 2025-07-29 17:40 | disposition home or self-care (01) | DRG 291 ==
LOC: EDH 02:20 → EDHIP 06:07 → 2AH 07-28 03:45
PROVIDERS: ADMIT Internal Medicine; ATTEND Internal Medicine
DX: I13.0 Hypertensive heart and chronic kidney disease with heart failure and stage 1 through stage 4 chronic kidney disease, or unspecified chronic kidney disease (principal); I50.43 Acute on chronic combined systolic (congestive) and diastolic (congestive) heart failure; E87.1 Hypo-osmolality and hyponatremia; Z66 Do not resuscitate; E11.22 Type 2 diabetes mellitus with diabetic chronic kidney disease; D64.9 Anemia, unspecified; I42.9 Cardiomyopathy, unspecified; I69.320 Aphasia following cerebral infarction; N17.9 Acute kidney failure, unspecified; N39.0 Urinary tract infection, site not specified; N18.4 Chronic kidney disease, stage 4 (severe); I69.354 Hemiplegia and hemiparesis following cerebral infarction affecting left non-dominant side; I25.10 Atherosclerotic heart disease of native coronary artery without angina pectoris; I45.10 Unspecified right bundle-branch block; I69.322 Dysarthria following cerebral infarction; E78.00 Pure hypercholesterolemia, unspecified; I25.2 Old myocardial infarction; Z82.49 Family history of ischemic heart disease and other diseases of the circulatory system; Z83.3 Family history of diabetes mellitus; Z86.718 Personal history of other venous thrombosis and embolism; Z79.899 Other long term (current) drug therapy
CPT/HCPCS: 36415; 71045; 80048; 80053; 81001; 82550; 82948; 83540; 83550; 83880; 84484; 85025; 87086; 87186; 93005; 96374; 96375; 99285; G0378; J0696; J1756; J1815; J1938; J2405; J7050